=== PATIENT | male | born 1960 | race Caucasian/White ===

== ENCOUNTER 2016-06-16 12:15 | Inpatient (IN) | payer OTHER ==
[2016-06-16] VITALS (7 sets, daily range): BP systolic 154–178; BP diastolic 97–117; PULSE 95–104; RESP 12–18; O2SAT 95–97
[~2016-06-16] VITALS: Ht 172.7 cm; Wt 101.9 kg
[~2016-06-16 12:15] MED LIST: DIGO125T PO; FOLI-51 PO; FURO40TA PO; LISI10TA9 PO; TOPR25T PO; vitamin B 12 PO
--- NOTE | 2016-06-16 12:50 | ED.REPORT ---
HPI-General Illness Date of Service June 16, 2016 ED Provider: The patient is a 55 year old male with history of hypertension and congestive heart failure who presents to the emergency department complaining of left ear swelling and pain that began 6 days. The swelling has worsened since onset and is now involving the left side of his face. The area is painful to the touch. He has also noticed drainage from his left ear, pressure down his neck, left- sided facial pain, balance issues, and diaphoresis. He is still able to hear. He denies measured fever, chills or vomiting. He has not had similar symptoms in the past. Nursing Notes Stated Complaint: SWELLING OF LEFT EAR Chief Complaint: ENT & Mouth Nursing Notes Reviewed: Yes Allergies: Coded Allergies: levofloxacin (Verified Allergy, Intermediate, redness and swelling at IV infusion site. 06/16/16, 06/16/16) Scheduled ([vitamin B 12]) 1 PO DAILY Digoxin-Expunged Drug, Do Not Renew! (Digoxin-Expunged Drug, Do Not Renew!) 125 Mcg Tablet 125 MCG PO DAILY Folic Acid/Mv,Fe,Other Min (Centrum Complete Multivit Tab) 1 Each Tablet 1 EACH PO DAILY Furosemide-Expunged Drug, Do Not Renew! (Lasix-Expunged Drug, Do Not Renew!) 40 Mg Tablet 40 MG PO DAILY Lisinopril-Expunged Drug, Do Not Renew! (Lisinopril-Expunged Drug, Do Not Renew! ) 10 Mg Tablet 10 MG PO BID Metoprolol Suc-Expunged Drug, Do Not Renew! (Metoprolol Suc-Expunged Drug, Do Not Renew!) 25 Mg Tber 25 MG PO DAILY General Time Seen by MD: 12:49 Chief Complaint Other (left ear swelling) Hx Obtained From: Patient Arrived By: Walk-in Sudden in Onset?: Yes Onset Occurred: 6 days ago Symptom Duration: Since onset Location: : Ear left: Face Quality: Painful Severity: Current: Moderate Severity: Maximum: Moderate Recent Healthcare: No recent doctor visit, No recent hospitalization Similar Sx Previous: No Past Medical History Past Medical History Notes: Cardiology: Dr. Guy Past Medical History Hypertension Congestive heart failure Denies: Diabetes mellitus Past Surgical History Cervical fusion of C3 and C4 Family History Reports: Diabetes mellitus, Hypertension Smoking History Unknown if Ever Smoker Social History Alcohol Use: >5 per day Other Social History: Local resident Ambulatory Status Independent Review of Systems +left ear swelling, left-sided facial swelling Full Review of Systems Constitutional: Denies: Chills, Fever Ears / Nose / Throat: Reports: Ear drainage left, Earache left, Denies: Hearing loss bilateral GI: Denies: Vomiting Musculoskeletal: Reports: Neck pain Skin: Reports Diaphoresis Complete sys rev & neg: except as marked. Physical Exam Vital Signs Vital Signs Date Time Temp Pulse Resp B/P Pulse Ox O2 Delivery O2 Flow Rate FiO2 06/16/16 16:04 36.9 102 18 155/97 95 Room Air 06/16/16 12:34 37.0 110 12 177/108 97 Room Air Initial VS: Reviewed Head / Eyes: Atraumatic, Normocephalic, PERRL Respiratory: Breath sounds normal, Clear to auscultation, No respiratory distress Cardiovascular: Regular rate & rhythm, Heart sounds normal, Intact distal pulses Abdomen / GI: Soft, Non-tender, No guarding, No rebound, No distention Lymphatic: No lymphadenopathy Extremities: Vascular intact, Neuro intact, No swelling, No tenderness Skin: Warm, Dry, No cyanosis Neurologic: Alert, Oriented, Nonfocal Psychiatric: Mood/affect normal, Behavior normal, Normal thought content General/Constitutional: Awake, Alert, Cooperative ENT: Airway patent Left external ear erythema and edema with swelling extending to the jaw and cheek. The left ear canal is edematous and erythematous and is partially occluded with draining purulent fluids. There is moderate auricle and tragal tenderness to manipulation. Neck: No midline vertebral tend Left lower cervical adenopathy tenderness Interpretation & Diagnostics Interpretation & Diagnostics: CT SOFT TISSUE NECK IMPRESSION: 1. Inflammation involving the left external auditory canal and the left periauricular soft tissues compatible with clinical diagnosis of malignant otitis externa. 2. No abscess. Dictated by: Karlene Cisneros MD, PhD on 06/16/2016 at 16:31 Lab Results Interpretation Result Diagram: 06/16/16 1510 06/16/16 1510 Test 06/16/16 15:10 06/16/16 17:01 White Blood Count 6.2th/mm3 (3.8-10.1) Red Blood Count 5.27mil/mm3 (4.40-5.80) Hemoglobin 15.6g/dL (13.8-17.2) Hematocrit 45.0% (41.0-50.0) Mean Corpuscular Volume 85.4fL (81-100) Mean Corpuscular Hemoglobin 29.6pg (27.0-35.0) Mean Corpuscular Hemoglobin Concent 34.7% (32.0-37.0) Red Cell Distribution Width 13.1% (12.3-15.4) Platelet Count 174bil/L (150-400) Neutrophils (%) (Auto) 79.4% (40-74) Lymphocytes (%) (Auto) 11.4% (14-46) Monocytes (%) (Auto) 8.1% (4-12) Eosinophils (%) (Auto) 0.3% (0-5) Basophils (%) (Auto) 0.5% (0-3) Sodium Level 138mEq/L (134-144) Potassium Level 4.3mEq/L (3.5-5.2) Chloride Level 95mEq/L (97-108) Carbon Dioxide Level 25mmol/L (18-29) Blood Urea Nitrogen 13mg/dL (6-24) Creatinine 0.70mg/dL (0.76-1.27) Estimat Glomerular Filtration Rate 124mL/min (>59) Glucose Level 124mg/dL (60-99) Lactic Acid Level 1.6mmol/L (0.4-2.0) Calcium Level 9.6mg/dL (8.5-10.1) Total Bilirubin 0.5mg/dL (0.0-1.2) Aspartate Amino Transf (AST/SGOT) 48U/L (0-50) Alanine Aminotransferase (ALT/SGPT) 30U/L (0-44) Alkaline Phosphatase 77U/L (25-150) Total Protein 7.9g/dL (6.4-8.4) Albumin 4.3g/dL (3.4-5.0) Urine Color Yellow (YELLOW) Urine Appearance Clear (CLEAR,HAZY) Urine pH 5.5 (5.0-8.0) Urine Specific [place] <1.005 (1.003-1.035) Urine Protein Negativemg/dL (NEG,TRACE) Urine Glucose (UA) Negativemg/dL (NEGATIVE) Urine Ketones Tracemg/dL (NEGATIVE) Urine Occult Blood Moderate (NEGATIVE) Urine Nitrite Negative (NEGATIVE) Urine Bilirubin Negative (NEGATIVE) Urine Urobilinogen Normalmg/dL (NORMAL) Urine Leukocyte Esterase Negative (NEGATIVE) Urine RBC 3-10/hpf (0-2) Urine WBC 0-5/hpf (0-5) Urine Epithelial Cells Occasional/hpf (NONE-MOD) Urine Crystals None seen (NONE SEEN) Urine Bacteria None/hpf (NONE-FEW) Urine Hyaline Casts None/lpf (NONE) Urine Granular Casts None seen (NONE SEEN) Urine Waxy Casts None seen (NONE SEEN) Urine Red Blood Cell Casts None seen (NONE SEEN) Urine White Blood Cell Casts None seen (NONE SEEN) Urine Mucus None seen (None Seen) Urine Trichomonas None seen (NONE SEEN) Urine Yeast None (NONE SEEN) Urinalysis Comment None Urine Culture Reflexed Not indicated Re-Eval/Medical Decision Med Decision/Clinical Course Rapidly expanding otitis externa with ear canal almost completely occluded due to edema. Concern for malignant otitis externa. No abscess appreciated at this time. No evidence of sepsis. We will admit for IV antibiotics. We will anticipate infectious disease consult. Levaquin was started in the emergency department and he promptly had an acute reaction at the site of the IV infusion. Was stopped 25 mg of Benadryl through the IV site was given. His doing well otherwise. We will change to PIP taser. He was also given vancomycin and ceftriaxone until pathogen is actually identified. Time of Eval: 17:03 Re-Evaluation/Progress Note: Rechecked the patient. Discussed CT results, diagnosis, and plan for admission to the hospital. He understands and agrees. All questions were addressed. Time of Eval: 17:17 Re-Evaluation/Progress Note: He is having a reaction to the IV Levaquin as it is infusing. It is stopped and Benadryl is given and we will have to find a different antipseudomonal antibiotic. Consultation #1: Referral / Consult Name: Fide Carballo DO Consulted With: Hospitalist Requested Call at: 17:03 Call Returned at: 17:50 Online Merchandising Manager: Will see patient, Agrees with eval, Agrees with plan, Accepts admit Consultation #2: Referral / Consult Name: Domenic Jacob MD Consulted With: ENT Requested Call at: 17:08 Call Returned at: 17:53 Online Merchandising Manager: Will see patient, Agrees with eval, Agrees with plan Counseled Regarding: Diagnosis, Lab results, Need for admission Discharge & Departure Primary Impression: Malignant otitis externa of left ear Chronicity: acute Qualified Code: H60.22 - Malignant otitis externa, left ear Disposition: ADMITTED TO HOSPITAL Discharge Condition All VS Reviewed: Yes Condition: Stable Referrals: Vincent Valdes DO (PCP) Harpreet Attestation Portions of this note were transcribed by Lia Paredes. I, Dr. De La Fuente, personally performed the history, physical exam and medical decision-making; I reviewed and confirmed the accuracy of the information in the transcribed note. Signed by: Harpreet Zavaleta, 06/16/2016 and 1800. copies to: Vincent Valdes Shawna L MD June 16, 2016 12:50 Lia Paredes June 16, 2016 12:53
[2016-06-16] MEDS ORDERED: cefTRIAXone Inj 2,000 MG in Dextrose 5% Minibag Plus 50 ML IV ONE (13:20)
[2016-06-16] MEDS ORDERED: levoFLOXacin Inj 750 MG in IV Premix 1 EACH IV ONE (14:05)
[2016-06-16 15:25] LABS: BASOPHILS % (AUTO) 0.5 % (0-3); EOSINOPHILS % (AUTO) 0.3 % (0-5); MONOCYTES % (AUTO) 8.1 % (4-12); Mean Corpuscular Hemoglobin 29.6 pg (27.0-35.0); Mean Corpuscular Volume 85.4 fL (81-100); NEUTROPHILS % (AUTO) 79.4 % (40-74); Platelet Count 174 bil/L (150-400)
--- NOTE | 2016-06-16 16:45 | DRSVH ---
PROCEDURE: CT NECK SOFT TISSUES WITH CONTRAST ([id number]) INDICATIONS: malignant otitis externa TECHNIQUE: After the administration of intravenous contrast, 3.0 mm axial sections acquired from the sella to th e aortic arch. Additional oblique axial 3.0 mm sections acquired through the pharynx. 3 mm thick co martine reformats were generated. For radiation dose reduction, the following was used: automated exp osure control. COMPARISON: None. FINDINGS: Image quality: Excellent. Lymph nodes: No enlarged lymph nodes seen throughout the neck. Vessels: Visualized vasculature appears patent. Neck spaces: Skin thickening and subcutaneous inflammation involving the left external auditory chelo l and left nina-auricular soft tissues noted. Findings compatible with reported clinical diagnosis of malignant otitis externa. No abscess is identified. The oropharynx, nasopharynx, and pharynx demonst rate no mucosal lesions. The vocal cords, false vocal cords, pyriform sinuses, epiglottis, vallecula , and tongue base all appear normal. Extramucosal spaces appear unremarkable. Glands: The right parotid gland is normal in appearance. Mild inflammatory changes involving the sup erior margin of the left parotid gland related to left malignant otitis externa. The submandibular gl ands appear normal. Thyroid gland is within normal limits. Miscellaneous: Visualized brain and orbits appear normal. Lung apices appear clear. Superficial so ft tissues appear normal. Bones: No suspicious bony lesions. No osseous erosive changes are associated with the right malignan t otitis externa. Small mucous retention cyst versus polyp noted in the left maxillary sinus. The mas toids appear unremarkable. IMPRESSION: 1. Inflammation involving the left external auditory canal and the left periauricular soft tissues co mpatible with clinical diagnosis of malignant otitis externa. 2. No abscess. Dictated by: Karlene Cisneros MD, PhD on 06/16/2016 at 16:31 Approved by: Karlene Cisneros MD, PhD on 06/16/2016 at 16:43
[2016-06-16 17:14] LABS: APPEARANCE,URINE CLEAR (CLEAR,HAZY); COLOR,URINE YELLOW (YELLOW); OCCULT BLOOD,URINE MODERATE (NEGATIVE); PH,URINE 5.5 (5.0-8.0); UROBILINOGEN,URINE NORMAL (NORMAL)
[2016-06-16] MEDS ORDERED: Neomycin-Polymyxin-HC 10 mL Otic Solution LEFT_EAR ONE (17:50)
[2016-06-16] MEDS ORDERED: Polyethylene Glycol (PEG) 17 Gm Powder PO PRN (18:10)
[2016-06-16] MEDS ORDERED: Alum-Mag Hydrox-Simeth 30 mL Suspension PO PRN (18:10)
[2016-06-16] MEDS ORDERED: Ondansetron 2 mg/mL 2 mL Inj IVPUSH PRN (18:10)
[2016-06-16] MEDS ORDERED: Piperacillin-Tazo 3.375 Gm Inj 3.375 GM in Dextrose 5% Minibag Plus 50 ML IV ONE (18:15)
[2016-06-16] MEDS ORDERED: MULT-1104 PO (18:46)
[2016-06-16] MEDS ORDERED: OMEG-38 PO (18:46)
[2016-06-16] MEDS ORDERED: CYAN100T PO (18:46)
[2016-06-16] MEDS ORDERED: CHOL10008 PO (18:46)
--- NOTE | 2016-06-16 18:50 | PCM.HPMED ---
Subjective Date of Service June 16, 2016 Primary Provider: Admitting Physician: Fide Carballo DO Primary Care Physician: Dara Attending Physician: Fide Carballo DO Admit Status: From the Emergency Department Chief Complaint: Left ear pain History of Present Illness: 55-year-old male with past medical history of systolic heart failure, hypertension who was lost to medical follow for the last 2 years his presenting with left ear pain that is ongoing for 6 days . He states that he does not smoke and he has had no fevers or chills. No sore throat or sinus infections. He does feel occasional pressure sensation in his ears. He denies using too much Q-tips to cause trauma. He has had no strep throat infections. He is endorsing drainage from left ear, pressure on his neck left-sided facial pain but denies hearing loss and fevers and chills he was unable to go to work for the last 1 week because of this.. States that he gets his ears flushed due to due to wax sometimes but has not done this in the recent past In the ER he was given vancomycin and ceftriaxone. Levaquin was started but still held due to itching and reaction. His blood pressures were elevated at 177/108 and heart rate 110 and 102. ENT was contacted Dr. Baldev Jacob agreed to see the patient CT scan of soft tissue neck showed malignant otitis, inflamed periarticular soft tissue. Records indicate an echo that was done in 12/20/12 showed ejection fraction of 45 -50%, mild dilatation of left atrium, mild dilation of the ascending aorta, 31 mm of right ventricular pressures. Review of Systems: Positive for polyuria, slight numbness around the year, 8 out of 10 pain over his face and ear. Patient denies diarrhea, constipation, nausea, vomiting leg swelling, shortness of breath, chest pain dysuria. Patient endorses feeling dizzy, diaphoresis. Allergies Coded Allergies: levofloxacin (Verified Allergy, Intermediate, redness and swelling at IV infusion site. 06/16/16, 06/16/16) PMH Remarkable for hypertension and systolic heart failure Surgical History Remarkable for Cardiac catheterization due to shortness of breath and C3-C4 fusion Family History Mother had some kind of hepatitis and with some type of cancer Father had diabetes and of congestive heart failure Older brother has hypertension second brother has systolic heart failure Sister has. 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 Intramedullary changes over the auricle, negative for drainage, negative for hearing loss, positive for rhinophyma Neck: Palpable posterior cervical lymphadenopathy on the left side, palpable submental lymphadenopathy Heart: Regular rate and rhythm last S4 sounds Lungs: Clear to auscultation no crackles or wheezes Neuro: No focal deficits alert and oriented by 3 Psych: Negative for anxiety Lab and Diagnostics Result Diagram: 06/16/16 1510 06/16/16 1510 X-Rays, CTs and MRIs PROCEDURE: CT NECK SOFT TISSUES WITH CONTRAST ([id number]) IMPRESSION: 1. Inflammation involving the left external auditory canal and the left periauricular soft tissues compatible with clinical diagnosis of malignant otitis externa. 2. No abscess. Dictated by: Karlene Cisneros MD, PhD on 06/16/2016 at 16:31 Approved by: Karlene Cisneros MD, PhD on 06/16/2016 at 16:43 ADDENDUM This report includes an Addendum and supersedes previous reports for this exam. PROCEDURE: CT NECK SOFT TISSUES WITH CONTRAST ([id number]) INDICATIONS: malignant otitis externa ADDENDUM: Inadvertently the dictation did not mention at the site of the palpable abnormality in the posterior left upper neck approximately C3. At this site is a bilobed or 2 adjacent small lymph nodes that enhance and show a small amount of inflammation around them consistent with inflammatory response. Also, the parotid gland was reviewed per Dr. Carballo and no abnormality of it is seen. There is some stranding in the subcutaneous fat superficial to it. Dictated by: Philipp Carbajal M.D. on 06/16/2016 at 18:55 Approved by: Philipp Carbajal M.D. on 06/16/2016 at 18:56 Report status: Addendum REPORT#: [id number] Assessment & Plan This is a 55-year-old male with past medical history of hypertension and congestive heart failure that is systolic presenting today with a malignant otitis externa. Assessment #1 malignant otitis externa present on admission -- ENT is consulted Dr. Oliverio Jacob has seen the patient: We will await their recommendations -- Zosyn antibiotic 3.375 mg every 8 hours, avoid fluoroquinolones due to his reaction in the ER -- Morphine, ketorolac for pain control -- Tylenol, ibuprofen -- It appeared the radiology imaging with Dr. Carbajal, who stated that there is no concern for parotiditis based on the imaging no additional CT scanning is necessary. He also admitted the CT scan report to include lymphadenopathy findings. Assessment #2 congestive heart failure systolic, chronic: Patient has been noncompliant -- Restarted his lisinopril 10 mg, metoprolol 12.5 twice a day Assessment #3 hypertension, chronic: Patient has been Noncompliant -- Restarted his lisinopril 10 mg, metoprolol 12.5 twice a day Assessment #4 alcohol abuse: -- Patient is put on ciwa protocol -- After I have Seen the patient, ER staff called asking for the patient to be sent to the second floor as they are concerned about his alcoholism and risk of delirium tremens -- Patient will be seen by second-floor hospitalists 06/17 CODE STATUS: Full code Alternate decision-maker is older brother Diet heart healthy IV fluids hep-locked Pain Evaluation: Adequate Pain Control VTE Prophylaxis: Sub-Q Heparin (Unfractionated) Resuscitation Status: CPR: Attempt Resuscitation Time spent 40 minutes Fide Carballo DO June 16, 2016 18:50
[2016-06-16] MEDS ORDERED: OMEP20TA24 PO (18:52)
[2016-06-16] MEDS ORDERED: Piperacillin-Tazo 3.375 Gm Inj 3.375 GM in Dextrose 5% Minibag Plus 50 ML IV SCH (19:30)
[2016-06-16] MEDS: Multivit-Miner-Folic Acid-Iron Tablet PO SCH (22:11)
[2016-06-16] MEDS: Heparin 5,000 Unit/mL Inj SUBQ SCH (22:12)
[2016-06-16] MEDS: Sodium Chloride LOK Flush 10 mL Syringe IVFLUSH SCH (22:12)
[2016-06-17] VITALS (10 sets, daily range): BP systolic 109–147; BP diastolic 71–91; PULSE 69–90; RESP 18–20; O2SAT 94–98
--- NOTE | 2016-06-17 00:05 | ER ---
[address] [address] EMERGENCY DEPT ADMIT NOTE PATIENT: EMY PIERRE : 1960 MR#: [id number] ADMIT: 06/16/2016 JOB ID: [id number] DATE: ____/ at 7:30 in the evening. [facility] Emergency department. Room 15. HISTORY: This is a 55-year-old gentleman who said his ear on the left side has been increasingly sore for the last six days or so. He came to the emergency department. He is now being admitted for cellulitis of the auricle and ear canal. He uses Q-Tips to clean his ears and we talked about that is the usual cause of this infection. He is not diabetic and the CAT scan is reportedly okay without skull base involvement at this point. OBJECTIVE: Ear, nose and throat exam is normal except for wax pushed down his right ear canal by his Q-tip, filling about half of the ear canal and eardrum looks normal. The left auricle is markedly swollen and weeping. The left ear canal is swollen shut and with gentle persuasion. the ear canal could be instrumented with an otoscope and there does not seem to be any ear infection of the eardrum region. ASSESSMENT: Otitis externa, left, with cellulitis secondary to Q-tip use and abuse. Three Merocel sponges were positioned in the left ear canal. Cortisporin Otic suspension drops were utilized. The patient will be admitted, put on IV antibiotics and was cautioned not to try to clean his ears himself. Cortisporin otic suspension drops four drops four times a day in the left ear will be administered and ordered. When there is improvement in his condition and he is discharged, we should see him this next week in our office to monitor his ongoing recovery and remove the ear wax.
[2016-06-17] MEDS ORDERED: 0.9% Sodium Chloride 250 ML ONE (00:39)
[2016-06-17] MEDS: cloNIDine 0.1 mg Tablet PO SCH ×3 (00:54→12:08)
[2016-06-17] MEDS: Piperacillin-Tazo 3.375 Gm Inj 3.375 GM in Dextrose 5% Minibag Plus 50 ML IV SCH ×2 (00:54→08:37)
[2016-06-17] MEDS: Sodium Chloride LOK Flush 10 mL Syringe IVFLUSH SCH ×3 (00:54→16:53)
[2016-06-17] MEDS: Neomycin-Polymyxin-HC 10 mL Otic Solution LEFT_EAR SCH ×5 (00:54→21:58)
[2016-06-17] MEDS: Heparin 5,000 Unit/mL Inj SUBQ SCH ×3 (01:36→17:40)
[2016-06-17 05:17] LABS: BASOPHILS % (AUTO) 0.5 % (0-3); EOSINOPHILS % (AUTO) 1.5 % (0-5); MONOCYTES % (AUTO) 9.4 % (4-12); Mean Corpuscular Hemoglobin 30.1 pg (27.0-35.0); NEUTROPHILS % (AUTO) 73.4 % (40-74); Platelet Count 150 bil/L (150-400)
[2016-06-17] MEDS: Multivit-Miner-Folic Acid-Iron Tablet PO SCH (08:36)
[2016-06-17] MEDS ORDERED: Epinephrine Racemic 2.25% 0.5 mL Inhalation Solution NEB ONE (09:45)
[2016-06-17] MEDS ORDERED: Albuterol 1.25 mg/3 mL Inhalation Solution ONE (09:47)
[2016-06-17] MEDS ORDERED: Dexamethasone 4 mg/mL Inj IVPUSH ONE ×3 (09:55→17:10)
--- NOTE | 2016-06-17 12:51 | CONS ---
[address] [address] CONSULTATION REPORT PATIENT: EMY PIERRE : 1960 MR#: [id number] ADMIT: 06/16/2016 JOB ID: [id number] DATE OF SERVICE: 06/17/2016 REQUESTING PHYSICIAN: I thank Dr. Brown Menjivar for this timely consultation. REASON FOR CONSULTATION: Left malignant otitis externa in an apparently nondiabetic patient. HISTORY OF PRESENT ILLNESS: The patient is a 55-year-old gentleman with multiple underlying medical problems, including hypertension and cardiomyopathy which is felt to be due to alcohol but which of course could be due to hypertension as well. The patient reports he was in his usual state of functional health until about 10 days or so ago when he developed blistering tender lesions on the pinna of his left ear. This has progressed steadily over the past 7-10 days with increasing pain, drainage, swelling, and discomfort involving eventually the whole left side of his head, radiating up but to the area around the orbit as well as causing a significant headache and all the way down really to his upper left neck. The patient has had no fevers or chills. He has chronic night sweats of unknown etiology which have not changed as part of this illness. He reports no change in his vision and no difficulty moving his eyes. At no point has he had seizures, loss of consciousness, or apparent confusion. Earlier this morning while being examined, the patient reported tightness in his throat which was rapidly progressive which seems to have resolved with albuterol inhalation and cool mist. The patient has not had a significant cough as part of this illness, nor has he had chest pain, nausea, vomiting, or diarrhea. 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 The patient reports some degree of disequilibrium and dizziness in association with his left ear process. He does not describe true vertigo. He has not had any syncope. He is able to ambulate without undue difficulty. PAST MEDICAL HISTORY: 1. Hypertension. 2. Cardiomyopathy, potentially secondary to alcohol and/or hypertension. 3. Alcoholism. 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 He was born and raised in this area and has not traveled widely. He is a heavy consumer of alcohol with 12 shots or so of tequila on a nightly basis. He does not smoke cigarettes but occasionally smokes marijuana. Much earlier in his life, he experimented with cocaine and methamphetamine but no longer. He is and had one child who in infancy of group B strep bacteremia or meningitis. FAMILY HISTORY: Patient's mother had tuberculosis. To the best of his knowledge, he has not had tuberculosis, nor has he been tested, though it seems likely that he would have received at least a PPD from the health department. REVIEW OF SYSTEMS: The patient reports a significant headache, especially on the left side of his head. He has no visual problems either with movement of his eyes or vision, though he did report some transient blurry vision earlier which resolved. He has had sensation of disequilibrium and nonspecific lightheadedness, but he has been able to walk without difficulty and perform his ADLs. At no point has he had confusion or loss of consciousness. He has had no particular sore throat, though earlier today he reported throat tightening that resolved with nebulizers. No odynophagia. No dysphagia. No stiff neck. He has a chronic cough, but it has not changed. It is not productive of blood or significant sputum. No chest pain. No nausea, vomiting, diarrhea, dysuria, urgency, frequency, swollen joints. The patient has no focal neuro complaints. Remainder of his review of systems is negative. PHYSICAL EXAMINATION: Reveals a quite ill gentleman sitting up in his hospital bed. Temperature 36.7. He has been afebrile throughout his 24-hour stay here at [facility]. Pulse 77, respiratory rate 18, blood pressure 120/77, saturating 95% on room air. He is in some obvious distress due to the pain involving his left ear area. The patient's entire head, neck, and upper chest are very james in appearance. His abdomen is not, and I think this is a result primarily of sun exposure, as he works outside at least part of the time. The head is without evidence of trauma or temporal wasting. His eyes are without conjunctivitis or scleral icterus. Extraocular movements are intact. The nose appears normal. Oral cavity has a very deeply furrowed tongue but without clear-cut thrush, pharyngitis, or exudate. Neck is supple without significant adenopathy. The patient's left ear is dramatically abnormal. There is a purulent material with crusting filling the external auditory canal. The entire pinna and apparatus of the left ear is grossly inflamed, warm, and tender to palpation. This tenderness extends in a circumferential area around the entire left ear. The dougherty crusting material present in the ear would be consistent with a staphylococcal infection. The right ear is basically normal at this point. The patient's lungs are clear to auscultation. Cardiac exam: Regular rate and rhythm. No murmur. Abdomen is soft, nontender, somewhat obese, but no hepatosplenomegaly. No apparent ascites. It does not have a Ashford catheter. No suprapubic fullness. No inguinal adenopathy. No evidence of synovitis. No skin rash except that around his left ear. Neurologically, the patient is intact. LABORATORIES: Include white count 6000. Completely normal differential on the white count. Creatinine 0.87. LFTs are normal. Urinalysis without white cells. Note that his glucose is 121 fasting. HIV and hepatitis C we just ordered, and results are pending. Culture from the ear is growing group B strep, as well as Staph aureus with susceptibilities that are pending. Blood cultures are negative. IMAGING: Includes a CT scan of the neck which shows inflammation of the left external auditory canal and left periauricular tissues compatible with malignant otitis externa. No abscess is seen. There is no involvement importantly of the bones. No osseous erosive changes are associated with this left malignant otitis. Note that in the CT report, there is some confusion between left and right, but all his disease is actually on the left. IMPRESSION: This is a 55-year-old gentleman with an unusual presentation. Malignant otitis externa is almost exclusively a disease of older people with poorly controlled diabetes. It has also been reported occasionally in human immunodeficiency virus patients. The organism is typically Pseudomonas aeruginosa. Here we have a gentleman who appears not to have diabetes, and as far as we know does not have human immunodeficiency virus, who presents with a very severe left otitis externa which appears to be due to a synergistic combination of Staphylococcus aureus and group B streptococcus. I think part of the workup here will be to look for an underlying cause of immunosuppression. It may be that his ongoing alcohol abuse leaves him sufficiently immunosuppressed for this process, but we must explore other possibilities as well. In terms of treating this, we are going to need a potent therapy directed against both MRSA as well as MSSA and group B strep until we know whether or not this is a MRSA or MSSA isolette. RECOMMENDATIONS: 1. Additional diagnostics will be ordered, including human immunodeficiency virus, hep C, procalcitonin, QuantiFERON Gold, and cardiac echo. 2. Daptomycin at about 7 mg/kg will be added to the Zosyn which has already been started. 3. I would continue the Zosyn until we are sure there is no Pseudomonas here, and then that can be dropped and will continue with daptomycin as our sole antibiotic. 4. This case discussed in detail with Dr. Menjivar as well as with the patient. 5. This patient could probably benefit from alcohol rehabilitation once his emergent problem is over, as his 12 shots of tequila per night is not probably sustainable in view of his unexplained cardiomyopathy which is probably due to alcohol, as well as what appears to be a very severe and atypical infection which he was likely predisposed to by this alcohol abuse.
[2016-06-17] MEDS: DAPTOmycin Inj 750 MG in 0.9% Sodium Chloride 50 ML IV SCH (13:20)
--- NOTE | 2016-06-17 14:12 | PCM.PNMED ---
Subjective Date of Service June 17, 2016 Subjective Mr. Crow is a 55-year-old gentleman with a history of alcoholic cardiomyopathy , acute systolic heart failure, hypertension, and depression with a previous suicide attempt in 2009 who was lost to medical follow for the last 2 years . He presented to the Emergency Department with a 6 day history of left ear pain and subsequently admitted for further evaluation and management of malignant otitis externa. Hospital day #1 Overnight, patient was admitted to [facility] with telemetry and started on IV zosyn. Per nursing, patient hypertensive with BP of 178/117 with a pulse of 104 and started on clonidine per the night hospitalist. Patient stated that he was concerned that he might be having alcohol withdrawal symptoms. Today he states that he has had significant alcohol withdrawal in the past but denies a history of seizures. He reports restless and mild nausea but otherwise is without complaint. Pain is well controlled. Exam Vital Signs Vital Sign - Last Date Time Temp Pulse Resp B/P Pulse Ox O2 Delivery O2 Flow Rate FiO2 06/17/16 06:23 75 124/81 06/17/16 03:55 36.9 18 96 Room Air Intake and Output 06/16/16 06/16/16 06/17/16 Cumulative From/Thru 15:00 23:00 07:00 06/16/16 12:34 - 06/17/16 04:43 Intake Total 551 ml 551 ml Output Total 1000 ml 1000 ml Balance -449 ml -449 ml Intake Oral 500 ml 500 ml IV Total 51 ml 51 ml Output Urine Total 1000 ml 1000 ml # Bowel Movements 0 0 Exam General: Well-developed, obese male, appears somewhat anxious but in no acute distress HEENT: Normocephalic, atraumatic, oral mucosa moist, no scleral icterus, facial flushing with increased erythema and swelling of the face on the left, his left ear is tender to palpation with significant erythema and swelling and dried pus. Neck: Soft, tender to palpation laterally on the left at the level of L3 consistent with palpable posterior lymphadenopathy. Cardiovascular: Regular rate and rhythm, no murmurs, no rubs, or gallops appreciated Pulmonary: Clear to auscultation bilaterally with no crackles, wheezes, or rhonchi. Abdomen: Bowel tones present. Soft, nontender, nondistended. No hepatosplenomegaly or masses appreciated. Extremities: Trace edema ankles bilaterally with brawny discoloration consistent with venous staus changes. No clubbing or cyanosis Skin: Normal temperature, poor turgor in neck, and texture; no rash, ulcers, or subcutaneous nodules appreciated. Neurological: Cranial nerves grossly intact. Alert and oriented to person, place , and time. Psychiatric: Appropriately interactive, mildly anxious with normal affect IVs and Medications Medications Reviewed: Medications were reviewed in detail Lab and Diagnostics Laboratory Tests Test 06/16/16 15:10 06/16/16 17:01 06/17/16 05:05 White Blood Count 6.2th/mm3 (3.8-10.1) 6.1th/mm3 (3.8-10.1) Red Blood Count 5.27mil/mm3 (4.40-5.80) 4.85mil/mm3 (4.40-5.80) Hemoglobin 15.6g/dL (13.8-17.2) 14.6g/dL (13.8-17.2) Hematocrit 45.0% (41.0-50.0) 41.7% (41.0-50.0) Mean Corpuscular Volume 85.4fL (81-100) 86.0fL (81-100) Mean Corpuscular Hemoglobin 29.6pg (27.0-35.0) 30.1pg (27.0-35.0) Mean Corpuscular Hemoglobin Concent 34.7% (32.0-37.0) 35.0% (32.0-37.0) Red Cell Distribution Width 13.1% (12.3-15.4) 13.1% (12.3-15.4) Platelet Count 174bil/L (150-400) 150bil/L (150-400) Neutrophils (%) (Auto) 79.4% (40-74) 73.4% (40-74) Lymphocytes (%) (Auto) 11.4% (14-46) 14.9% (14-46) Monocytes (%) (Auto) 8.1% (4-12) 9.4% (4-12) Eosinophils (%) (Auto) 0.3% (0-5) 1.5% (0-5) Basophils (%) (Auto) 0.5% (0-3) 0.5% (0-3) Sodium Level 138mEq/L (134-144) 138mEq/L (134-144) Potassium Level 4.3mEq/L (3.5-5.2) 4.2mEq/L (3.5-5.2) Chloride Level 95mEq/L (97-108) 97mEq/L (97-108) Carbon Dioxide Level 25mmol/L (18-29) 25mmol/L (18-29) Blood Urea Nitrogen 13mg/dL (6-24) 15mg/dL (6-24) Creatinine 0.70mg/dL (0.76-1.27) 0.87mg/dL (0.76-1.27) Estimat Glomerular Filtration Rate 124mL/min (>59) 96mL/min (>59) Glucose Level 124mg/dL (60-99) 121mg/dL (60-99) Lactic Acid Level 1.6mmol/L (0.4-2.0) Calcium Level 9.6mg/dL (8.5-10.1) 9.1mg/dL (8.5-10.1) Total Bilirubin 0.5mg/dL (0.0-1.2) 0.7mg/dL (0.0-1.2) Aspartate Amino Transf (AST/SGOT) 48U/L (0-50) 37U/L (0-50) Alanine Aminotransferase (ALT/SGPT) 30U/L (0-44) 23U/L (0-44) Alkaline Phosphatase 77U/L (25-150) 66U/L (25-150) Total Protein 7.9g/dL (6.4-8.4) 6.5g/dL (6.4-8.4) Albumin 4.3g/dL (3.4-5.0) 4.0g/dL (3.4-5.0) Urine Color Yellow (YELLOW) Urine Appearance Clear (CLEAR,HAZY) Urine pH 5.5 (5.0-8.0) Urine Specific [place] <1.005 (1.003-1.035) Urine Protein Negativemg/dL (NEG,TRACE) Urine Glucose (UA) Negativemg/dL (NEGATIVE) Urine Ketones Tracemg/dL (NEGATIVE) Urine Occult Blood Moderate (NEGATIVE) Urine Nitrite Negative (NEGATIVE) Urine Bilirubin Negative (NEGATIVE) Urine Urobilinogen Normalmg/dL (NORMAL) Urine Leukocyte Esterase Negative (NEGATIVE) Urine RBC 3-10/hpf (0-2) Urine WBC 0-5/hpf (0-5) Urine Epithelial Cells Occasional/hpf (NONE-MOD) Urine Crystals None seen (NONE SEEN) Urine Bacteria None/hpf (NONE-FEW) Urine Hyaline Casts None/lpf (NONE) Urine Granular Casts None seen (NONE SEEN) Urine Waxy Casts None seen (NONE SEEN) Urine Red Blood Cell Casts None seen (NONE SEEN) Urine White Blood Cell Casts None seen (NONE SEEN) Urine Mucus None seen (None Seen) Urine Trichomonas None seen (NONE SEEN) Urine Yeast None (NONE SEEN) Urinalysis Comment None Urine Culture Reflexed Not indicated Microbiology 06/16/16 Blood Culture- pending 06/16/16 Upper Respiratory Culture (ear)- pending Result Diagram: 06/17/16 0505 06/17/16 0505 X-Rays, CTs and MRIs PROCEDURE: CT NECK SOFT TISSUES WITH CONTRAST IMPRESSION: 1. Inflammation involving the left external auditory canal and the left periauricular soft tissues compatible with clinical diagnosis of malignant otitis externa. 2. No abscess. Dictated and approved by: Karlene Cisneros MD, PhD on 06/16/2016 at 16:31 ADDENDUM: Inflammation involving the left external auditory canal and the left periauricular soft tissues compatible with clinical diagnosis of malignant otitis externa.Inadvertently the dictation did not mention at the site of the palpable abnormality in the posterior left upper neck approximately C3. At this site is a bilobed or 2 adjacent small lymph nodes that enhance and show a small amount of inflammation around them consistent with inflammatory response. Also, the parotid gland was reviewed per Dr. Carballo and no abnormality of it is seen. There is some stranding in the subcutaneous fat superficial to it. Dictated and approved by: Philipp Carbajal M.D. on 06/16/2016 at 18:55 Assessment & Plan 55-year-old gentleman with a history of alcohol dependence, alcoholic cardiomyopathy with acute systolic heart failure, hypertension, and depression with a previous suicide attempt in 2009 who was lost to medical follow for the last 2 years. He presented to the Emergency Department with a 6 day history of left ear pain and subsequently admitted for malignant otitis externa. Hospital day #1 1. Malignant otitis externa, acute. Present on admission. Active -Likely secondary to recent sore on patient's ear that he states he kept picking. -Received IV levoflaxacin in the ER which was stopped following acute reaction at site of IV infusion and patient given Benadryl. -He then received doses of vancomycin and ceftriaxone. Ultimately started on zosyn. -ENT is consulted Dr. Oliverio Jacob has seen the patient: We will await their recommendations -Continue piperacillin-tazobactam 3.375mg Q8hrs, avoid fluoroquinolones -ENT consulted from the ED, awaiting recommendations. -Consulted Infectious Disease. 2. Congestive heart failure, systolic, chronic. Present on admission. Active. -Patient has history of noncompliance with medications and follow up. -Per chart review, patient discharged on 11/15/2009 with diagnosis of: alcoholic cardiomyopathy, systolic heart failure, and atypical chest pain with normal cardiac catheterization. Echo at that time showed moderate-severely enlarged left ventricle with an ejection fraction of less than 15%. He was stabilized medically and discharged with: Furosemide 40mg daily, Lisinopril 10mg bid, metoprolol succinate 25mg daily. Digoxin 0.125 milligrams daily. -Last Echo via chart review was on 12/20/12 with EF 45-50%, mild dilatation of left atrium, mild dilation of the ascending aorta. -Continue Lisinopril 10mg, Metoprolol 12.5mg bid -Consider consult to Cardiology, due to history. Clinically does not appear in acute exacerbation. 3. Alcohol addiction, chronic. Present on admission. Active -Patient reports 10 shots of Tequila per day and prior symptoms of alcohol withdrawal but denies seizures. -Continue CIWA protocol 4. Chronic hypertension. Present on admission. Active. -Continue lisinopril 10mg daily, metoprolol 12.5 twice a day 5. Hyperlipidemia, chronic. Present on admission. Active. -Not currently on statin therapy. -Check lipid panel and likely start a statin 6. History of depression and anxiety, with prior suicide attempt. Present on admission. Active. -Not currently on anti-depressant. -Monitor clinically and continue CIWA protocol -Patient will need close outpatient follow up Acetaminophen-fever/headache/mild/moderate pain Antiemetics, as needed Bowel regimen, as needed. Disposition: Patient will likely need 2-3days of inpatient monitoring for IV antibiotics and optimization of medical management of multiple medical problems , which are chronic and patient has not been taking his medications. Pain Evaluation: Adequate Pain Control VTE Prophylaxis: Sub-Q Heparin (Unfractionated) Resuscitation Status: CPR: Attempt Resuscitation Attending Statement The patient was seen and examined together with Resident/House-Staff on 06/17/16 and I agree with the history, exam and plan as outlined in the note above. Kristine Santamaria DO June 17, 2016 08:16 Chivo Alvarez June 20, 2016 14:34
--- NOTE | 2016-06-17 15:45 | DRSVH ---
[facility] [address] [place] [address] Echocardiogram Report Name: EMY PIERRE DStudy Date : 06/17/2016 Height: 68 in Hospital Exam Location: [facility] Weight: 226 lb Gender: Male BSA: 2.2 m2 : 1960 Age: 55 yrs BP: 120/77 mmHg Reason For Study: ETOH CARDIOMYOPATHY, SOB Ordering Physician: HOSPITALIST SVHPerformed By: Perry Ramirez Referring Physician: FAUSTO ESTRADA Interpretation Summary The left ventricle is moderate-severely dilated. There is mild concentric left ventricular hypertrophy. Left ventricular systolic function is mild to moderately reduced. The ejection fraction is estimated to be 40-45%. Compared to the prior exam, left ventricular function is slightly decreased. But, there is evidence for more severe hypokinesis along the lateral wall. Assessment of diastolic parameters suggests a pseudonormalization pattern, consistent with elevated filling pressures. The right ventricle is moderately dilated. The right ventricular systolic function is normal. Pulmonary artery pressures cannot be estimated because of the lack of a measurable TR jet velocity. The left atrium is moderately dilated. The right atrium is mildly dilated. There is no significant valvular heart disease. The ascending aorta is mild-moderately enlarged which has mildly increased. Procedure: A two-dimensional transthoracic echocardiogram with color flow and Doppler was performed. The study quality was technically adequate. A contrast injection of Definity was performed to improve assessment of LV function. Comparison is made with the echocardiogram of 12/20/12. Left Ventricle: The left ventricle is moderate-severely dilated. There is mild concentric left ventricular hypertrophy. Left ventricular systolic function is mild to moderately reduced. The ejection fraction is estimated to be 40-45%. Compared to the prior exam, left ventricular function is slightly decreased. There is mild to moderate global hypokinesis of the left ventricle. But, there is evidence for more severe hypokinesis along the lateral wall. Assessment of diastolic parameters suggests a pseudonormalization pattern, consistent with elevated filling pressures. Right Ventricle: The right ventricle is moderately dilated. The right ventricular systolic function is normal. Atria: The left atrium is moderately dilated. The right atrium is mildly dilated. The interatrial septum is intact with no evidence for an atrial septal defect. Mitral Valve: The mitral valve leaflets appear borderline thickened, but open well. There is trace mitral regurgitation. Aortic Valve: The aortic valve is normal in structure and function. No aortic regurgitation is present. Tricuspid Valve: The tricuspid valve is not well visualized, but is grossly normal. Pulmonary artery pressures cannot be estimated because of the lack of a measurable TR jet velocity. Pulmonic Valve: The pulmonic valve leaflets are thin and pliable; valve motion is normal. There is trace pulmonic regurgitation. There is no significant valvular heart disease. Great Vessels: The aortic root is normal size. The ascending aorta is mild- moderately enlarged. The pulmonary artery is normal size. The IVC is of normal diameter and collapses greater than 50% with a sniff. This suggests a low right atrial pressure of 3 mm Hg. Pericardium/ Pleura There is no pericardial effusion. There is no pleural effusion. MMode/2D Measurements & Calculations LVIDd: 6.7 cm RA long axis: 5.0 cm LVOT diam LVIDs: 6.0 cm LA A2 area: 26.6 cm FS: 11.0 % LA A4 area: 25.8 cm RA area: 19.8 cm AoV Opening EPSS: 1.5 cm LA length (vol): 6.1 cm RA vol: 67.5 ml IVSd: 1.2 cm LA vol: 95.0 ml RA : 31.4 ml/m2 Ao root diam LVPWd: 1.1 cm LA vol index asc Aorta : 44.1 ml/m2 Diam: 4.1 cm EDV(MOD-sp2) LV elaine. diameter/BSA LV sys. diameter/BSA TAPSE: 2.3 cm (cm/m^2): 3.1 (cm/m^2): 2.8 ESV(MOD-sp2) EF(MOD-sp2) Doppler Measurements & Calculations Ao V2 max: 89.1 cm/sec MV E max noe MV E/A: 1.7 PA V2 max Ao max P.2 mmHg : 76.9 cm/sec Med Peak E' Noe : 60.8 cm/sec Ao mean P.0 mmHg MV A max noe PA mean PG LVOT Max Noe : 45.5 cm/sec E/E' med: 19.1 : 0.97 mmHg : 67.7 cm/sec Lat Peak E' Noe MISSAEL(I,D): 4.1 cm E/E' lat: 13.6 sev ratio: 0.83 E/e' average MV dec time: 0.15 sec Ao V2 mean LV V1 max PG PA V2 mean : 69.4 cm/sec : 47.4 cm/sec Ao V2 VTI: 14.1 cmLV V1 VTI: 11.8 cm PA pr(Accel) : 34.0 mmHg MISSAEL(V,D): 3.7 cm2 MISSAEL indexed to BSA (cm^2/m^2): 1.9 Reading Physician:PM
[2016-06-17] MEDS ORDERED: Famotidine 10 mg/mL 2 mL Inj IVPUSH ONE (17:05)
[2016-06-17] MEDS: Famotidine Inj 20 MG in IV Premix 1 EACH IV SCH (21:57)
[2016-06-17] MEDS: Dexamethasone 4 mg/mL Inj IVPUSH SCH (21:57)
[2016-06-17] MEDS: Mupirocin 2% 22 Gm Ointment NASAL SCH (21:57)
[2016-06-18] VITALS (8 sets, daily range): BP systolic 115–143; BP diastolic 79–90; PULSE 72–104; RESP 16–20; O2SAT 93–98
[2016-06-18] MEDS: Sodium Chloride LOK Flush 10 mL Syringe IVFLUSH SCH ×3 (02:04→16:14)
[2016-06-18] MEDS: Heparin 5,000 Unit/mL Inj SUBQ SCH ×3 (02:05→17:17)
[2016-06-18] MEDS: Dexamethasone 4 mg/mL Inj IVPUSH SCH ×6 (02:06→20:46)
[2016-06-18 02:09] LABS: Hemoglobin A1C 5.8 % (4.8-5.6)
[2016-06-18 04:24] LABS: BASOPHILS % (AUTO) 0.1 % (0-3); EOSINOPHILS % (AUTO) 0 % (0-5); MONOCYTES % (AUTO) 1.4 % (4-12); Mean Corpuscular Hemoglobin 29.4 pg (27.0-35.0); Mean Corpuscular Volume 84.6 fL (81-100); NEUTROPHILS % (AUTO) 89.4 % (40-74); Platelet Count 208 bil/L (150-400)
[2016-06-18] MEDS: Neomycin-Polymyxin-HC 10 mL Otic Solution LEFT_EAR SCH ×4 (06:00→23:56)
[2016-06-18] MEDS: Multivit-Miner-Folic Acid-Iron Tablet PO SCH (09:37)
[2016-06-18] MEDS: Mupirocin 2% 22 Gm Ointment NASAL SCH ×2 (09:46→20:47)
[2016-06-18] MEDS: Famotidine Inj 20 MG in IV Premix 1 EACH IV SCH ×2 (10:04→20:46)
[2016-06-18] MEDS: DAPTOmycin Inj 750 MG in 0.9% Sodium Chloride 50 ML IV SCH (10:50)
--- NOTE | 2016-06-18 13:45 | PCM.PNMED ---
Subjective Date of Service June 18, 2016 Subjective Mr. Crow is a 55-year-old gentleman with a history of alcoholic cardiomyopathy , acute systolic heart failure, hypertension, and depression with a previous suicide attempt in 2009 who was lost to medical follow for the last 2 years . He presented to the Emergency Department with a 6 day history of left ear pain and subsequently admitted for further evaluation and management of malignant otitis externa. Hospital day #2 Yesterday morning (06/17) patient reported shortness of breath, difficulty swallowing, and was noted to be quite anxious. At that time his symptoms were mild and attributed to anxiety secondary to alcohol withdrawal. He received dexamethasone 2mg IV and 5mg of IV diazepam which relieved his symptoms. Approximately 8 hours later his lip became very swollen and was noted by nursing to occur shortly after the patient had received zosyn and daptomycin. No signs of airway comprise and he was evaluated and discussed with Infectious Disease and the decision made to stop his lisinopril and zosyn. He was started on dexamethasone 6mg IV q4h, diphenhydramine 25mg IV q4h and famotidine 20mg IV q4h. Exam Vital Signs Vital Sign - Last Date Time Temp Pulse Resp B/P Pulse Ox O2 Delivery O2 Flow Rate FiO2 06/18/16 05:31 80 06/18/16 03:50 36.5 18 115/79 93 Room Air 06/17/16 21:46 2.00 Intake and Output 06/17/16 06/17/16 06/18/16 Cumulative From/Thru 15:00 23:00 07:00 06/16/16 12:34 - 06/18/16 06:17 Intake Total 1249 ml 200 ml 2000 ml Output Total 650 ml 350 ml 2000 ml Balance 599 ml -150 ml 0 ml Intake Oral 1040 ml 200 ml 1740 ml IV Total 209 ml 260 ml Output Urine Total 650 ml 350 ml 2000 ml # Voids 2 2 4 # Bowel Movements 0 0 Exam General: Well-developed, obese male, in no acute distress. Alert and oriented x3. HEENT: Normocephalic, atraumatic, facial flushing, lips swollen, left ear tender to palpation with erythema/swelling and dried pus. Neck: Soft, tender to palpation laterally on the left at the level of L3 consistent with palpable posterior lymphadenopathy. Cardiovascular: Regular rate and rhythm, no murmurs, no rubs, or gallops appreciated Pulmonary: Clear to auscultation bilaterally with no crackles, wheezes, or rhonchi. Abdomen: Bowel tones present. Soft, nontender, nondistended. No hepatosplenomegaly or masses appreciated. Extremities: Trace edema ankles bilaterally with brawny discoloration consistent with venous staus changes. No clubbing or cyanosis Skin: Normal temperature, normal turgor, and texture; facial flushing that extends to upper chest and back, no urticaria, obvious rash or ulcers Psychiatric: Appropriately interactive, mildly anxious with normal affect Lab and Diagnostics Laboratory Tests Test 06/18/16 04:10 White Blood Count 8.6th/mm3 (3.8-10.1) Red Blood Count 5.45mil/mm3 (4.40-5.80) Hemoglobin 16.0g/dL (13.8-17.2) Hematocrit 46.1% (41.0-50.0) Mean Corpuscular Volume 84.6fL (81-100) Mean Corpuscular Hemoglobin 29.4pg (27.0-35.0) Mean Corpuscular Hemoglobin Concent 34.7% (32.0-37.0) Red Cell Distribution Width 13.0% (12.3-15.4) Platelet Count 208bil/L (150-400) Neutrophils (%) (Auto) 89.4% (40-74) Lymphocytes (%) (Auto) 8.9% (14-46) Monocytes (%) (Auto) 1.4% (4-12) Eosinophils (%) (Auto) 0% (0-5) Basophils (%) (Auto) 0.1% (0-3) Sodium Level 135mEq/L (134-144) Potassium Level 4.8mEq/L (3.5-5.2) Chloride Level 95mEq/L (97-108) Carbon Dioxide Level 24mmol/L (18-29) Blood Urea Nitrogen 18mg/dL (6-24) Creatinine 0.70mg/dL (0.76-1.27) Estimat Glomerular Filtration Rate 124mL/min (>59) Glucose Level 159mg/dL (60-99) Calcium Level 9.8mg/dL (8.5-10.1) Total Bilirubin 0.6mg/dL (0.0-1.2) Aspartate Amino Transf (AST/SGOT) 28U/L (0-50) Alanine Aminotransferase (ALT/SGPT) 22U/L (0-44) Alkaline Phosphatase 67U/L (25-150) Total Protein 6.9g/dL (6.4-8.4) Albumin 4.2g/dL (3.4-5.0) Triglycerides Level 151mg/dL (0-149) Cholesterol Level 249mg/dL (100-199) LDL Cholesterol, Calculated 159.800mg/dL (0-99) VLDL Cholesterol 30.200mg/dL HDL Cholesterol 59mg/dL (>39) Cholesterol/HDL Ratio 4.22 (0.0-4.4) Result Diagram: 06/18/1640906/18/16409 Microbiology MRSA screen- positive Culture-left ear: positive for Group B streptococcus and Staph (probable S. aureus) Blood cultures- no growth to date. X-Rays, CTs and MRIs PROCEDURE: CT NECK SOFT TISSUES WITH CONTRAST IMPRESSION: 1. Inflammation involving the left external auditory canal and the left periauricular soft tissues compatible with clinical diagnosis of malignant otitis externa. 2. No abscess. Dictated and approved by: Karlene Cisneros MD, PhD on 06/16/2016 at 16:31 ADDENDUM: Inflammation involving the left external auditory canal and the left periauricular soft tissues compatible with clinical diagnosis of malignant otitis externa.Inadvertently the dictation did not mention at the site of the palpable abnormality in the posterior left upper neck approximately C3. At this site is a bilobed or 2 adjacent small lymph nodes that enhance and show a small amount of inflammation around them consistent with inflammatory response. Also, the parotid gland was reviewed per Dr. Carballo and no abnormality of it is seen. There is some stranding in the subcutaneous fat superficial to it. Dictated and approved by: Philipp Carbajal M.D. on 06/16/2016 at 18:55 Assessment & Plan 55-year-old gentleman with a history of alcohol dependence, alcoholic cardiomyopathy with acute systolic heart failure, hypertension, and depression with a previous suicide attempt in 2009 who was lost to medical follow for the last 2 years. He presented to the Emergency Department with a 6 day history of left ear pain and subsequently admitted for malignant otitis externa. Hospital day #2 1. Angioedema, acute. not present on admission. Improved. -Uncertain etiology, possibly allergic reaction to medication. -Patient reported difficulty swallowing and voice changes which progressed throughout the afternoon to include facial/lip swelling. Airway patent. -Lisinopril and piperacillin-tazobactam stopped. -Continue dexamethasone 6mg IV q4h, famotidine 20mg IV q4h and diphenhydramine 25mg IV q4h. 2. Malignant otitis externa, acute. Present on admission. Active -Likely secondary to recent sore on patient's ear that he states he kept picking. -Levofloxacin stopped in the ER following acute rxn at site of IV infusion. Received doses of vancomycin, ceftriaxone in the ER. -Continue daptomycin, per Infectious Disease. -Zosyn stopped 06/17 for angioedema. 3. Congestive heart failure, systolic, chronic. Present on admission. Active. -Patient has history of noncompliance with medications and follow up. -Per chart review, patient discharged on 11/15/2009 with diagnosis of: -alcoholic cardiomyopathy, systolic heart failure, and atypical chest pain with normal cardiac catheterization. -Echo at that time showed moderate-severely enlarged left ventricle with an EF<15%. -He was stabilized medically and discharged with: Furosemide 40mg daily, Lisinopril 10mg bid, metoprolol succinate 25mg daily. Digoxin 0.125 milligrams daily. -Last Echo via chart review was on 12/20/12 with EF 45-50%, mild dilatation of left atrium, mild dilation of the ascending aorta. -Continue Metoprolol 12.5mg bid, Lisinopril stopped due to angioedema. -Consider consult to Cardiology, due to history. Clinically does not appear in acute exacerbation. 4. Alcohol addiction, chronic. Present on admission. Active -Patient reports 10 shots of Tequila per day and prior symptoms of alcohol withdrawal but denies seizures. -Continue CIWA protocol 5. Chronic hypertension. Present on admission. Active. -Continue metoprolol 12.5 twice a day 6. Hyperlipidemia, chronic. Present on admission. Active. -Not currently on statin therapy. -Check lipid panel and likely start a statin 7. History of depression and anxiety, with prior suicide attempt. Present on admission. Active. -Not currently on anti-depressant. -Monitor clinically and continue CIWA protocol -Patient will need close outpatient follow up Acetaminophen-fever/headache/mild/moderate pain Antiemetics, as needed Bowel regimen, as needed. Disposition: Patient will likely need 2-3days of inpatient monitoring for IV antibiotics and optimization of medical management of multiple medical problems , which are chronic and patient has not been taking his medications. Pain Evaluation: Adequate Pain Control VTE Prophylaxis: Sub-Q Heparin (Unfractionated) Resuscitation Status: CPR: Attempt Resuscitation Attending Statement The patient was seen and examined together with Resident/House-Staff on 06/18/16 and I agree with the history, exam and plan as outlined in the note above. Kristine Santamaria DO June 18, 2016 08:33 Chivo Alvarez June 20, 2016 16:49
[2016-06-19] VITALS (8 sets, daily range): BP systolic 116–133; BP diastolic 78–93; PULSE 82–96; RESP 16–20; O2SAT 95–98
[2016-06-19] MEDS: Dexamethasone 4 mg/mL Inj IVPUSH SCH ×4 (00:39→12:47)
[2016-06-19] MEDS: Sodium Chloride LOK Flush 10 mL Syringe IVFLUSH SCH ×3 (00:39→16:39)
[2016-06-19] MEDS: Heparin 5,000 Unit/mL Inj SUBQ SCH ×3 (04:08→17:33)
[2016-06-19 05:05] LABS: BASOPHILS % (AUTO) 0 % (0-3); EOSINOPHILS % (AUTO) 0 % (0-5); MONOCYTES % (AUTO) 2.8 % (4-12); Mean Corpuscular Hemoglobin 29.1 pg (27.0-35.0); NEUTROPHILS % (AUTO) 90.5 % (40-74); Platelet Count 215 bil/L (150-400)
[2016-06-19] MEDS: Neomycin-Polymyxin-HC 10 mL Otic Solution LEFT_EAR SCH ×3 (05:07→17:33)
[2016-06-19] MEDS: Multivit-Miner-Folic Acid-Iron Tablet PO SCH (07:38)
[2016-06-19] MEDS: Mupirocin 2% 22 Gm Ointment NASAL SCH ×2 (07:39→20:10)
[2016-06-19] MEDS ORDERED: 0.9% Sodium Chloride 250 ML ONE (07:45)
[2016-06-19] MEDS: Famotidine Inj 20 MG in IV Premix 1 EACH IV SCH ×2 (07:53→20:07)
[2016-06-19] MEDS: DAPTOmycin Inj 750 MG in 0.9% Sodium Chloride 50 ML IV SCH (09:40)
--- NOTE | 2016-06-19 15:10 | PCM.PNMED ---
Subjective Date of Service June 19, 2016 Subjective Says overall feeling much better today. Denies any SOB, nausea, vomiting, difficulty swallowing. Exam Vital Signs Vital Sign - Last Date Time Temp Pulse Resp B/P Pulse Ox O2 Delivery O2 Flow Rate FiO2 06/19/16 12:15 36.6 89 20 116/81 96 Room Air 06/17/16 21:46 2.00 Intake and Output 06/18/16 06/18/16 06/19/16 Cumulative From/Thru 15:00 23:00 07:00 06/16/16 12:34 - 06/19/16 05:11 Intake Total 1290 ml 110 ml 3400 ml Output Total 2000 ml Balance 1290 ml 110 ml 1400 ml Intake Oral 1120 ml 2860 ml IV Total 170 ml 110 ml 540 ml Output Urine Total 2000 ml # Voids 4 8 # Bowel Movements 2 2 General: Alert, Oriented X3, Cooperative, No Acute Distress Head: Normal, Other (face flushed with diffuse erythema) Eyes: Scleral Anicteric Ears: Other (left ear with continued erythema and crusting.) Nose: Mucous Membr Moist/[place] Mouth: Lips (no longer swollen), Mucous Membr Moist/[place] Neck: Supple Chest & Lungs: Chest Wall Normal, Clear to auscultation & percussion Cardiovascular: Regular Rate/Rhythm Pulses: NL carotid, radial, femoral, DP, PT Abdomen: Non-tender, Non-distended, Normoactive bowel tones, Soft Extremities: No cyanosis/clubbing/edma bilat Neurological: Grossly Neurologically Intact, Normal Speech IVs and Medications Medications Reviewed: Medications were reviewed in detail Lab and Diagnostics Result Diagram: 06/19/16 0454 06/19/16 0454 Microbiology MRSA screen- positive Culture-left ear: positive for Group B streptococcus and Staph (probable S. aureus) Blood cultures- no growth to date. X-Rays, CTs and MRIs PROCEDURE: CT NECK SOFT TISSUES WITH CONTRAST IMPRESSION: 1. Inflammation involving the left external auditory canal and the left periauricular soft tissues compatible with clinical diagnosis of malignant otitis externa. 2. No abscess. Dictated and approved by: Karlene Cisneros MD, PhD on 06/16/2016 at 16:31 ADDENDUM: Inflammation involving the left external auditory canal and the left periauricular soft tissues compatible with clinical diagnosis of malignant otitis externa.Inadvertently the dictation did not mention at the site of the palpable abnormality in the posterior left upper neck approximately C3. At this site is a bilobed or 2 adjacent small lymph nodes that enhance and show a small amount of inflammation around them consistent with inflammatory response. Also, the parotid gland was reviewed per Dr. Carballo and no abnormality of it is seen. There is some stranding in the subcutaneous fat superficial to it. Dictated and approved by: Philipp Carbajal M.D. on 06/16/2016 at 18:55 Assessment & Plan 55-year-old gentleman with a history of alcohol dependence, alcoholic cardiomyopathy with acute systolic heart failure, hypertension, and depression with a previous suicide attempt in 2008 who was lost to medical follow for the last 2 years. He presented to the Emergency Department with a 6 day history of left ear pain and subsequently admitted for malignant otitis externa. 1. Acute angioedema. not present on admission. Improved. -Uncertain etiology, possibly allergic reaction to medication. -Lisinopril and piperacillin-tazobactam stopped. -Dexamethasone 6mg IV q4h, famotidine 20mg IV q4h and diphenhydramine 25mg IV q4h x 2 days. Will start titrating off 2. Malignant otitis externa, acute. Present on admission. Active -Likely secondary to recent sore on patient's ear that he states he kept picking. -Levofloxacin stopped in the ER following acute rxn at site of IV infusion. Received doses of vancomycin, ceftriaxone in the ER. -Cultures growing both Beta Strep Group G and MRSA -Appreciate ID consult. Will followup with recommendations -Continue daptomycin, per Infectious Disease (Zosyn stopped 06/17 due to angioedema) 3. Congestive heart failure, systolic, chronic. Present on admission. Stable -Patient has history of noncompliance with medications and follow up. -Per chart review, patient discharged on 11/15/2009 with diagnosis of: -alcoholic cardiomyopathy, systolic heart failure, and atypical chest pain with normal cardiac catheterization. -Echo at that time showed moderate-severely enlarged left ventricle with an EF<15%. -He was stabilized medically and discharged with: Furosemide 40mg daily, Lisinopril 10mg bid, metoprolol succinate 25mg daily. Digoxin 0.125 milligrams daily. -Last Echo via chart review was on 12/20/12 with EF 45-50%, mild dilatation of left atrium, mild dilation of the ascending aorta. -Continue Metoprolol 12.5mg bid, Lisinopril stopped due to angioedema. -Consider further followup by Cardiology as outpatient 4. Alcohol addiction, chronic. Present on admission. Active -Patient reports 10 shots of Tequila per day and prior symptoms of alcohol withdrawal but denies seizures. -Continue CIWA protocol 5. Chronic hypertension. Present on admission. Active. -Continue metoprolol 12.5 twice a day 6. Hyperlipidemia, chronic. Present on admission. Active. -Not currently on statin therapy. -Will defer to outpatient PCP for consideration of initiating medication treatment 7. History of depression and anxiety, with prior suicide attempt. Present on admission. Active. -Not currently on anti-depressant. -Monitor clinically and continue CIWA protocol -Patient will need close outpatient follow up Disposition: Likely 2-3 days. Will need to be setup with PCP prior to discharge (patient requests female PCP if possible) VTE Prophylaxis: Sub-Q Heparin (Unfractionated) Resuscitation Status: CPR: Attempt Resuscitation Chivo Alvarez June 19, 2016 15:10 Chivo Alvarez June 19, 2016 15:10
[2016-06-20] VITALS (9 sets, daily range): BP systolic 112–158; BP diastolic 75–105; PULSE 71–104; RESP 14–20; O2SAT 95–98
[2016-06-20] MEDS: Sodium Chloride LOK Flush 10 mL Syringe IVFLUSH SCH ×4 (00:37→23:59)
[2016-06-20] MEDS: Neomycin-Polymyxin-HC 10 mL Otic Solution LEFT_EAR SCH ×5 (00:37→23:58)
[2016-06-20] MEDS: Heparin 5,000 Unit/mL Inj SUBQ SCH ×3 (03:53→17:31)
[2016-06-20] MEDS ORDERED: Dexamethasone 4 mg/mL Inj IVPUSH SCH (08:30)
[2016-06-20] MEDS: Mupirocin 2% 22 Gm Ointment NASAL SCH ×2 (08:50→20:01)
[2016-06-20] MEDS: Multivit-Miner-Folic Acid-Iron Tablet PO SCH (08:50)
[2016-06-20] MEDS: Famotidine Inj 20 MG in IV Premix 1 EACH IV SCH ×2 (08:51→19:54)
[2016-06-20] MEDS: DAPTOmycin Inj 750 MG in 0.9% Sodium Chloride 50 ML IV SCH (08:54)
--- NOTE | 2016-06-20 11:29 | PCM.PNMED ---
Subjective Date of Service June 20, 2016 Subjective Mr. Crow is a 55-year-old gentleman with a history of alcoholic cardiomyopathy , acute systolic heart failure, hypertension, and depression with a previous suicide attempt in 2009 who was lost to medical follow for the last 2 years. He presented to the Emergency Department with a 6 day history of left ear pain and subsequently admitted for further evaluation and management of malignant otitis externa. Hospital day #5 Overnight, no acute events. Per nursing, CIWA scores 0 all shift and patient reported a restful night. He reports mild dizziness, point tenderness in his ribs/chest on the left and a cough associated with ear flushes but otherwise is without complaint and states that he is feeling much better. He denies fever, chills, chest pressure or palpitations, or GI symptoms. Exam Vital Signs Vital Sign - Last Date Time Temp Pulse Resp B/P Pulse Ox O2 Delivery O2 Flow Rate FiO2 06/20/16 09:25 104 06/20/16 08:38 36.5 20 158/105 96 Room Air 06/17/16 21:46 2.00 Intake and Output 06/19/16 06/19/16 06/20/16 Cumulative From/Thru 14:59 22:59 06:59 06/16/16 12:34 - 06/20/16 06:56 Intake Total 350 ml 1321 ml 490 ml 5561 ml Output Total 2000 ml Balance 350 ml 1321 ml 490 ml 3561 ml Intake Oral 350 ml 1200 ml 400 ml 4810 ml IV Total 121 ml 90 ml 751 ml Output Urine Total 2000 ml # Voids 3 4 7 22 # Bowel Movements 2 Exam General: Well-developed, obese male, in no acute distress. Alert and oriented x3. HEENT: Normocephalic, atraumatic, facial flushing, left ear tender to palpation with erythema/swelling. Neck: Soft, tender to palpation laterally on the left at the level of L3 consistent with palpable posterior lymphadenopathy. Cardiovascular: Regular rate and rhythm, no murmurs, no rubs, or gallops appreciated Pulmonary: Clear to auscultation bilaterally with no crackles, wheezes, or rhonchi. Abdomen: Bowel tones present. Soft, nontender, nondistended. No hepatosplenomegaly or masses appreciated. Extremities: Bilateral brawny discoloration of ankles bilaterally consistent with venous stasis changes. No edema, cyanosis or clubbing Skin: Normal temperature, normal turgor, and texture; facial flushing, no urticaria, obvious rash or ulcers Psychiatric: Appropriately interactive, normal mood and affect. IVs and Medications Medications Reviewed: Medications were reviewed in detail Lab and Diagnostics Microbiology 06/16/16 Blood Culture - no growth at 2 days 06/17/16 MRSA (PCR) - positive Result Diagram: 06/19/16 0454 06/19/16 0454 Microbiology MRSA screen- positive Culture-left ear: positive for Group B streptococcus and Staph (probable S. aureus) Blood cultures- no growth to date. X-Rays, CTs and MRIs PROCEDURE: CT NECK SOFT TISSUES WITH CONTRAST IMPRESSION: 1. Inflammation involving the left external auditory canal and the left periauricular soft tissues compatible with clinical diagnosis of malignant otitis externa. 2. No abscess. Dictated and approved by: Karlene Cisneros MD, PhD on 06/16/2016 at 16:31 ADDENDUM: Inflammation involving the left external auditory canal and the left periauricular soft tissues compatible with clinical diagnosis of malignant otitis externa.Inadvertently the dictation did not mention at the site of the palpable abnormality in the posterior left upper neck approximately C3. At this site is a bilobed or 2 adjacent small lymph nodes that enhance and show a small amount of inflammation around them consistent with inflammatory response. Also, the parotid gland was reviewed per Dr. Carballo and no abnormality of it is seen. There is some stranding in the subcutaneous fat superficial to it. Dictated and approved by: Philipp Carbajal M.D. on 06/16/2016 at 18:55 Assessment & Plan 55-year-old gentleman with a history of alcohol dependence, alcoholic cardiomyopathy with acute systolic heart failure, hypertension, and depression with a previous suicide attempt in 2009 who was lost to medical follow for the last 2 years. He presented to the Emergency Department with a 6 day history of left ear pain and subsequently admitted for malignant otitis externa. Hospital day #5 1. Angioedema, acute. not present on admission. Resolved. -Uncertain etiology, possibly allergic reaction to medication. -Patient reported difficulty swallowing and voice changes which progressed throughout the afternoon to include facial/lip swelling. Airway patent. -Lisinopril and piperacillin-tazobactam stopped. -Stop dexamethasone -Continue diphenhydramine, famotidine prn 2. Malignant otitis externa, acute. Present on admission. Active -Likely secondary to recent sore on patient's ear that he states he kept picking. -Levofloxacin stopped in the ER following acute rxn at site of IV infusion. Received doses of vancomycin, ceftriaxone in the ER. -Continue daptomycin (day4), per Infectious Disease. -Zosyn stopped /5 for angioedema. 3. Congestive heart failure, systolic, chronic. Present on admission. Active. -Patient has history of noncompliance with medications and follow up. -Per chart review, patient discharged on 11/15/2009 with diagnosis of: -alcoholic cardiomyopathy, systolic heart failure, and atypical chest pain with normal cardiac catheterization. -Echo at that time showed moderate-severely enlarged left ventricle with an EF<15%. -He was stabilized medically and discharged with: Furosemide 40mg daily, Lisinopril 10mg bid, metoprolol succinate 25mg daily. Digoxin 0.125 milligrams daily. -Last Echo via chart review was on 12/20/12 with EF 45-50%, mild dilatation of left atrium, mild dilation of the ascending aorta. -Continue Metoprolol 12.5mg bid, Lisinopril stopped due to angioedema. -Consider consult to Cardiology, due to history. Clinically does not appear in acute exacerbation. 4. Alcohol addiction, chronic. Present on admission. Active -Patient reports 10 shots of Tequila per day and prior symptoms of alcohol withdrawal but denies seizures. -Continue CIWA protocol 5. Chronic hypertension. Present on admission. Active. -Continue metoprolol 12.5 twice a day -Currently hypertensive, possibly secondary to steroids. -Continue to monitor, possibly add second anti-hypertensive medication. 6. Hyperlipidemia, chronic. Present on admission. Active. -Not currently on statin therapy. -Lipid panel, LDL >150, triglycerides 259. -Recommend close outpatient followup for initiation of statin 7. History of depression and anxiety, with prior suicide attempt. Present on admission. Active. -Not currently on anti-depressant. -Monitor clinically and continue CIWA protocol -Patient will need close outpatient follow up Acetaminophen-fever/headache/mild/moderate pain Antiemetics, as needed Bowel regimen, as needed. Disposition: Patient will likely need 1-2days of inpatient monitoring optimization of medical management of multiple medical problems, which are chronic and patient has not been taking his medications. Will need to be setup with PCP prior to discharge (patient requests female PCP if possible) Pain Evaluation: Adequate Pain Control VTE Prophylaxis: Sub-Q Heparin (Unfractionated) Resuscitation Status: CPR: Attempt Resuscitation Attending Statement The patient was seen and examined together with Resident/House-Staff on 06/20/16 and I agree with the history, exam and plan as outlined in the note above. Kristine Santamaria DO June 20, 2016 11:18 Chivo Alvarez June 20, 2016 17:14
--- NOTE | 2016-06-20 14:09 | PROG NOTE ---
[address] [address] PROGRESS NOTE PATIENT: EMY PIERRE : 1960 MR#: [id number] ADMIT: 06/16/2016 JOB ID: [id number] DATE: 06/20/2016 REASON FOR FOLLOWUP: Severe left malignant otitis externa secondary to combination of group G Strep and MRSA in an alcoholic gentleman. INTERVAL HISTORY: Recall that Monday, just prior to leaving the hospital, we were asked to re-evaluate the patient as he developed some sensation of swelling in his upper airway with particular swelling in the lips. This was associated with some subjective shortness of breath. We evaluated the patient in conjunction with pulmonary at that time and recommended that he be placed on steroids and Benadryl, which was done. The patient's angioedema/upper airway symptoms have since completely resolved and his steroids were just stopped today. Over the weekend, the patient has done quite well. He notes that his left ear is dramatically improved with less swelling, tenderness, and pain and discharge. In addition he notes that the swelling of his lips and his upper airway symptoms have completely resolved. He has no cough or shortness of breath at this point. No fevers, no chills. No sweats. No nausea, no vomiting, no diarrhea. LABORATORIES: Include a white count of 11,900, which is almost certainly due to steroids. Creatinine 0.79. LFTs are normal. Procalcitonin 0.13. HIV and hep C are negative. QuantiFERON Gold is pending. Micro studies include the group G Strep. Actually not group a group G strep as well as MRSA grew from his left ear. Blood cultures have been negative and the patient's nasal MRSA swab is positive. IMPRESSION: This is an unfortunate gentleman with malignant otitis externa on the left due to a combination of a beta strep and methicillin-resistant Staphylococcus aureus. He has improved considerably on daptomycin therapy and probably could be released from an Infectious Disease point of view. Unfortunately, on Monday, he suffered what appeared to be an angioedema or immunoglobulin E mediated event involving his face and this was probably due to Zosyn, though the possibility of lisinopril also exists. He has improved dramatically with steroids and antihistamines and withdrawal of the offending agents. At this point, I think it would be reasonable to observe him another day or so more in the hospital but certainly he should be ready to be discharged tomorrow. An appropriate oral antibiotic here might be clindamycin 300 q.i.d. or Zyvox 600 p.o. b.i.d. for about one more week. I would probably lean towards clindamycin even though it is four times a day because it will be much cheaper for the patient. RECOMMENDATIONS: 1. Continue with daptomycin at this point. 2. I would stop all steroids and antihistamines and observe the patient. 3. If there are no more untoward upper respiratory tract events overnight, the patient could be discharged on clindamycin or Zyvox as stated above. 4. Will see the patient again prior to discharge.
[2016-06-21 03:08] VITALS: BP 124/83; PULSE 72; RESP 14; O2SAT 96
[2016-06-21] MEDS: Heparin 5,000 Unit/mL Inj SUBQ SCH ×2 (03:20→10:47)
[2016-06-21 04:42] LABS: BASOPHILS % (AUTO) 0.1 % (0-3); EOSINOPHILS % (AUTO) 0.3 % (0-5); MONOCYTES % (AUTO) 8.9 % (4-12); Mean Corpuscular Hemoglobin 29.6 pg (27.0-35.0); NEUTROPHILS % (AUTO) 63.6 % (40-74); Platelet Count 215 bil/L (150-400)
[2016-06-21] MEDS: Neomycin-Polymyxin-HC 10 mL Otic Solution LEFT_EAR SCH (06:18)
[2016-06-21] MEDS: Famotidine Inj 20 MG in IV Premix 1 EACH IV SCH (07:48)
[2016-06-21] MEDS: Multivit-Miner-Folic Acid-Iron Tablet PO SCH (07:55)
[2016-06-21] MEDS: Sodium Chloride LOK Flush 10 mL Syringe IVFLUSH SCH (07:57)
[2016-06-21 08:30] VITALS: BP 131/89; PULSE 79; RESP 18; O2SAT 93
[2016-06-21] MEDS: DAPTOmycin Inj 750 MG in 0.9% Sodium Chloride 50 ML IV SCH (09:33)
[2016-06-21] MEDS: Mupirocin 2% 22 Gm Ointment NASAL SCH (09:36)
--- NOTE | 2016-06-21 09:48 | PCM.DIMED ---
Discharge Instructions Date of Service June 21, 2016 Dates of Hospitalization June 16, 2016 at 18:27 Discharge Diagnosis Discharge Diagnosis 1. Angioedema 2. Malignant otitis externa 3. Alcohol addiction 4. Hypertension 5. Hyperlipidemia Diet Heart Healthy Activity No restrictions Call your provider Fever or Chills, Shortness of breath, Chest pain, Vomitting, Excessive diarrhea Patient Instructions -Follow up with a primary care physician in the next few days to review this hospital stay and check your blood pressure. -It is important that that you followup with Cardiology, due to your history of heart failure. -We are sending you home with a prescription for antibiotics to treat the infection in your ear. -Take the antibiotics as directed until they are gone to clear the infection completely. -Abstain from alcohol completely and discuss your alcohol use with your primary care physician. . Follow-up plan Follow up with [facility], Dr. Shipley within one week. Call to set up an appointment. [facility] [place], [place] [address] Follow-up Provider: Domenic Shipley MD Follow-up with PCP in: 1 week Provider: [facility] Follow-up in: 2 weeks Mid-level Provider (F9): Vincent Valdes DO Follow-up with Mid-level in: 1 week Kristine Santamaria DO June 21, 2016 09:32
[2016-06-21] MEDS ORDERED: METO25TA6 PO (09:53)
[2016-06-21] MEDS ORDERED: CLIN-78 PO (10:06)
--- NOTE | 2016-06-21 10:34 | PROG NOTE ---
[address] [address] PROGRESS NOTE PATIENT: EMY PIERRE : 1960 MR#: [id number] ADMIT: 06/16/2016 JOB ID: [id number] DATE: 06/21/2016 REASON FOR FOLLOWUP: Combined Beta strep and MRSA infection left ear plus angioedema presumably secondary to Zosyn. INTERVAL HISTORY: The patient reports he is feeling quite well. He has almost no pain or swelling left in his left ear. All oral symptoms including the swollen lips and other intraoral symptoms related to the either Zosyn and/or lisinopril he had received have resolved. No cough, shortness of breath, nausea, or vomiting. He does have some loose stools. PHYSICAL EXAMINATION: Reveals an afebrile gentleman, temp 36.8, pulse 79, respiratory rate 18, blood pressure 131/89, saturating well on room air. No acute distress. Left ear still has a bit of packing left in it, but the inflammation involving the pinna and external auditory canal has essentially resolved. No more crusting inflammation or tenderness. Oral cavity likewise normal. The lips are now back to normal size. The patient has no complaint there. Lungs are clear. Abdomen soft, nontender. DIAGNOSTIC STUDIES: Laboratories include white count 7300, completely normal diff now that the steroids are gone. Creatinine 0.79. LFTs totally normal. Procalcitonin was 0.13, and that was some days ago. HIV, hep C negative. QuantiFERON Gold pending. Cultures of course grew group G strep as well as MRSA from the ear. No new imaging. IMPRESSION: This patient is doing extremely well. His infection has largely resolved. He should probably continue about 1 more week of an oral agent, and I think clindamycin would be a reasonable choice here, though Zyvox would be reasonable as well if he can afford it. RECOMMENDATIONS: 1. Last dose of daptomycin is being given as we speak. 2. The patient is ready for discharge. I would be sure and take all packing out of the ear before he goes. 3. The patient should take home his tube of mupirocin and finish the b.i.d. nasal mupirocin in attempt to eradicate his MRSA colonization. 4. Oral antibiotic should be clinda 300 mg p.o. q.i.d. for about 1 week or Zyvox 600 p.o. b.i.d. again for week. 5. The patient can follow up with me if he wants to, but I suspect this entire episode has come to a conclusion and it is not required.
--- NOTE | 2016-06-21 19:28 | PCM.DC.MED ---
Discharge Summary Date of Service June 21, 2016 Dates of Hospitalization Date of Hospital Admission June 16, 2016 at 18:27 Date of Discharge: June 21, 2016 Providers: Admitting Physician: Fide Carballo DO Primary Care Physician: Suzettecp Attending Physician: Fide Carballo DO Diagnosis at Time of Discharge Diagnosis at Time of Discharge 1. Angioedema 2. Malignant otitis externa 3. Alcohol addiction 4. Hypertension 5. Hyperlipidemia 6. History of Congestive heart failure 7. Alcohol addiction 8. Chronic hypertension 9. Hyperlipidemia 10. History of depression and anxiety Procedures XRay, CTs & MRIs PROCEDURE: CT NECK SOFT TISSUES WITH CONTRAST IMPRESSION: 1. Inflammation involving the left external auditory canal and the left periauricular soft tissues compatible with clinical diagnosis of malignant otitis externa. 2. No abscess. Dictated and approved by: Karlene Cisneros MD, PhD on 06/16/2016 at 16:31 ADDENDUM: Inflammation involving the left external auditory canal and the left periauricular soft tissues compatible with clinical diagnosis of malignant otitis externa.Inadvertently the dictation did not mention at the site of the palpable abnormality in the posterior left upper neck approximately C3. At this site is a bilobed or 2 adjacent small lymph nodes that enhance and show a small amount of inflammation around them consistent with inflammatory response. Also, the parotid gland was reviewed per Dr. Carballo and no abnormality of it is seen. There is some stranding in the subcutaneous fat superficial to it. Dictated and approved by: Philipp Carbajal M.D. on 06/16/2016 at 18:55 Brief History Per admission history and physical on 06/16/16. Dr. Fide Carballo. 55-year-old male with past medical history of systolic heart failure, hypertension who was lost to medical follow for the last 2 years his presenting with left ear pain that is ongoing for 6 days . He states that he does not smoke and he has had no fevers or chills. No sore throat or sinus infections. He does feel occasional pressure sensation in his ears. He denies using too much Q-tips to cause trauma. He has had no strep throat infections. He is endorsing drainage from left ear, pressure on his neck left-sided facial pain but denies hearing loss and fevers and chills he was unable to go to work for the last 1 week because of this.. States that he gets his ears flushed due to due to wax sometimes but has not done this in the recent past In the ER he was given vancomycin and ceftriaxone. Levaquin was started but still held due to itching and reaction. His blood pressures were elevated at 177/108 and heart rate 110 and 102. ENT was contacted Dr. Baldev Jacob agreed to see the patient CT scan of soft tissue neck showed malignant otitis, inflamed periarticular soft tissue. Records indicate an echo that was done in 12/20/12 showed ejection fraction of 45 -50%, mild dilatation of left atrium, mild dilation of the ascending aorta, 31 mm of right ventricular pressures. Hospital Course Mr. Crow is a 55-year-old gentleman with a history of alcohol dependence, alcoholic cardiomyopathy with acute systolic heart failure, hypertension, and depression with a previous suicide attempt in 2008 who was lost to medical follow for the last 2 years. He presented to the Emergency Department with a 6 day history of left ear pain and was subsequently admitted for malignant otitis externa. 1. Malignant otitis externa, acute. Present on admission. Treated. -Likely secondary to recent sore on patient's ear that he states he kept picking. -Levofloxacin stopped in the ER following acute rxn at site of IV infusion. Received doses of vancomycin, ceftriaxone in the ER. -Infectious disease was consulted and patient started on Zosyn and Daptomycin. -Cultures from patient's ear grew Beta Streptococcus and MRSA -Zosyn stopped 06/17 for angioedema. -Patient received IV daptomycin (06/17-06/21) and discharged on oral clindamycin 300mg qid for 7 more days. 2. Angioedema, acute. not present on admission. Resolved. -Uncertain etiology, possibly allergic reaction to zosyn or lisinopril. -Patient reported difficulty swallowing and voice changes and later significant facial/lip swelling. Airway remained patent. -Lisinopril and piperacillin-tazobactam stopped on 06/17/16. -Patient received dexamethasone, famotidine and diphenhydramine q6h (06/17-06/19) with resolution of symptoms. 3. History of Congestive heart failure, systolic. Present on admission. Presumed stable. -Patient has history of noncompliance with medications and follow up. -Per chart review, patient discharged on 11/15/2009 with diagnosis of: -alcoholic cardiomyopathy, systolic heart failure, and atypical chest pain with normal cardiac catheterization. -Echo at that time showed moderate-severely enlarged left ventricle with an EF<15%. -He was stabilized medically and discharged with: Furosemide 40mg daily, Lisinopril 10mg bid, metoprolol succinate 25mg daily. Digoxin 0.125 milligrams daily. -Last Echo via chart review was on 12/20/12 with EF 45-50%, mild dilatation of left atrium, mild dilation of the ascending aorta. -Patient continued on metoprolol 12.5mg bid. Lisinopril was stopped on 06/17/16 due to angioedema. Possible the reaction was secondary to Zosyn, which was also stopped. 4. Alcohol addiction, chronic. Present on admission. Active -Patient reports 10 shots of Tequila per day and prior symptoms of alcohol withdrawal but denies seizures. -Patient was placed on CIWA protocol. 5. Chronic hypertension. Present on admission. Improved -Patient was continued on metoprolol 12.5 twice a day -He will need close outpatient followup. 6. Hyperlipidemia, chronic. Present on admission. Active. -Not currently on statin therapy. -Lipid panel, LDL >150, triglycerides 259. -Recommend close outpatient followup for initiation of statin 7. History of depression and anxiety, with prior suicide attempt. Present on admission. Presumed stable. -Not currently on anti-depressant. -Patient will need close outpatient follow up Exam Vital Signs (Last) Date Time Temp Pulse Resp B/P Pulse Ox O2 Delivery O2 Flow Rate FiO2 06/21/16 08:30 36.8 79 18 131/89 93 Room Air 06/17/16 21:46 2.00 Exam General: Well-developed, obese male, in no acute distress. Alert and oriented x3. HEENT: Normocephalic, atraumatic, left ear tender to palpation with erythema/ swelling. Neck: Soft, mildly tender to palpation on the left at the level of L3 consistent with palpable posterior lymphadenopathy. Cardiovascular: Regular rate and rhythm, no murmurs, no rubs, or gallops appreciated Pulmonary: Clear to auscultation bilaterally with no crackles, wheezes, or rhonchi. Abdomen: Bowel tones present. Soft, nontender, nondistended. No hepatosplenomegaly or masses appreciated. Extremities: Bilateral brawny discoloration of ankles bilaterally consistent with venous stasis changes. No edema, cyanosis or clubbing Skin: Normal temperature, normal turgor, and texture; facial flushing, no urticaria, obvious rash or ulcers Psychiatric: Appropriately interactive, normal mood and affect. Test 06/16/16 15:10 06/16/16 17:01 06/17/16 05:05 06/17/16 09:20 Lactic Acid Level 1.6mmol/L (0.4-2.0) Urine Color Yellow (YELLOW) Urine Appearance Clear (CLEAR,HAZY) Urine pH 5.5 (5.0-8.0) Urine Specific [place] <1.005 (1.003-1.035) Urine Protein Negativemg/dL (NEG,TRACE) Urine Glucose (UA) Negativemg/dL (NEGATIVE) Urine Ketones Tracemg/dL (NEGATIVE) Urine Occult Blood Moderate (NEGATIVE) Urine Nitrite Negative (NEGATIVE) Urine Bilirubin Negative (NEGATIVE) Urine Urobilinogen Normalmg/dL (NORMAL) Urine Leukocyte Esterase Negative (NEGATIVE) Urine RBC 3-10/hpf (0-2) Urine WBC 0-5/hpf (0-5) Urine Epithelial Cells Occasional/hpf (NONE-MOD) Urine Crystals None seen (NONE SEEN) Urine Bacteria None/hpf (NONE-FEW) Urine Hyaline Casts None/lpf (NONE) Urine Granular Casts None seen (NONE SEEN) Urine Waxy Casts None seen (NONE SEEN) Urine Red Blood Cell Casts None seen (NONE SEEN) Urine White Blood Cell Casts None seen (NONE SEEN) Urine Mucus None seen (None Seen) Urine Trichomonas None seen (NONE SEEN) Urine Yeast None (NONE SEEN) Urinalysis Comment None Urine Culture Reflexed Not indicated Procalcitonin 0.13ng/mL (0.00-0.08) Hepatitis C Antibody <0.1s/co ratio (0.0-0.9) HIV (1&2) Ag and Ab, 4th Generation Non reactive (Non Reactive) Test 06/17/16 11:03 06/18/16 04:10 06/19/16 04:54 06/21/16 04:15 Hemoglobin A1c 5.8% (4.8-5.6) Triglycerides Level 151mg/dL (0-149) Cholesterol Level 249mg/dL (100-199) LDL Cholesterol, Calculated 159.800mg/dL (0-99) VLDL Cholesterol 30.200mg/dL HDL Cholesterol 59mg/dL (>39) Cholesterol/HDL Ratio 4.22 (0.0-4.4) Sodium Level 139mEq/L (134-144) Potassium Level 4.4mEq/L (3.5-5.2) Chloride Level 99mEq/L (97-108) Carbon Dioxide Level 25mmol/L (18-29) Blood Urea Nitrogen 22mg/dL (6-24) Creatinine 0.79mg/dL (0.76-1.27) Estimat Glomerular Filtration Rate 107mL/min (>59) Glucose Level 155mg/dL (60-99) Calcium Level 9.6mg/dL (8.5-10.1) Total Bilirubin 0.5mg/dL (0.0-1.2) Aspartate Amino Transf (AST/SGOT) 28U/L (0-50) Alanine Aminotransferase (ALT/SGPT) 24U/L (0-44) Alkaline Phosphatase 61U/L (25-150) Total Protein 6.9g/dL (6.4-8.4) Albumin 4.3g/dL (3.4-5.0) White Blood Count 7.3th/mm3 (3.8-10.1) Red Blood Count 4.83mil/mm3 (4.40-5.80) Hemoglobin 14.3g/dL (13.8-17.2) Hematocrit 42.0% (41.0-50.0) Mean Corpuscular Volume 87.0fL (81-100) Mean Corpuscular Hemoglobin 29.6pg (27.0-35.0) Mean Corpuscular Hemoglobin Concent 34.0% (32.0-37.0) Red Cell Distribution Width 13.1% (12.3-15.4) Platelet Count 215bil/L (150-400) Neutrophils (%) (Auto) 63.6% (40-74) Lymphocytes (%) (Auto) 26.7% (14-46) Monocytes (%) (Auto) 8.9% (4-12) Eosinophils (%) (Auto) 0.3% (0-5) Basophils (%) (Auto) 0.1% (0-3) Microbiology Results MRSA screen- positive Culture-left ear: positive for Group B streptococcus and Staph (probable S. aureus) Blood cultures- no growth to date. Discharge Medications Discharge Medications Cholecalciferol (Vitamin D3) (Vitamin D3) 1,000 Unit Tab.chew 1,000 UNIT PO DAILY (Reported) Clindamycin (Clindamycin) 300 Mg Capsule 300 MG PO QID Prescribed by: MARIBEL NUÑEZ DO Cyanocobalamin (Vitamin B-12) (Vitamin B-12) 100 Mcg Tablet Unknown Dose PO DAILY (Reported) Metoprolol Tartrate (Metoprolol Tartrate) 25 Mg Tablet 12.5 MG PO BID Prescribed by: MARIBEL NUÑEZ DO Multivit-Min/FA/Lycopen/Lutein (Centrum Silver Men Tablet) 300 Mcg-600 Mcg-300 Mcg Tablet 1 EACH PO DAILY (Reported) [place]-3/Dha/Epa/Fish Oil (Fish Oil 1,000 mg Softgel) 1 Each Capsule 2 EACH PO DAILY (Reported) As needed Omeprazole Magnesium (Prilosec Otc) 20 Mg Tablet.dr 20 MG PO DAILY PRN PRN For Dyspepsia or Heartburn (Reported) Followup Plan Discharge Diet: Heart Healthy Discharge Activity: No restrictions Patient Instructions -Follow up with a primary care physician in the next few days to review this hospital stay and check your blood pressure. -It is important that that you followup with Cardiology, due to your history of heart failure. -We are sending you home with a prescription for antibiotics to treat the infection in your ear. -Take the antibiotics as directed until they are gone to clear the infection completely. -Abstain from alcohol completely and discuss your alcohol use with your primary care physician. . Follow-up Provider: Vincent Valdes DO Follow-up with PCP in: 1 week Provider: [facility] Follow-up in: 2 weeks Mid-level Provider: Domenic Shipley MD Follow-up with Mid-level in: 1 week Time spent 35 min Attending Statement The patient was seen and examined together with Resident/House-staff on 06/21/16 and I agree with the history, exam and plan as outlined in the note above. Maribel Nuñez DO June 21, 2016 09:49 Chivo Alvarez June 24, 2016 16:56
== END 2016-06-21 12:00 | disposition home or self-care (01) | DRG 155 ==
LOC: SED 12:15 → OSC 18:27 → PCC 19:58
PROVIDERS: ADMIT Family Medicine; ATTEND Family Medicine
DX: H60.22 Malignant otitis externa, left ear (principal); I50.22 Chronic systolic (congestive) heart failure; I42.6 Alcoholic cardiomyopathy; I10 Essential (primary) hypertension; F10.20 Alcohol dependence, uncomplicated; E78.5 Hyperlipidemia, unspecified; B95.2 Enterococcus as the cause of diseases classified elsewhere; B95.62 Methicillin resistant Staphylococcus aureus infection as the cause of diseases classified elsewhere; T36.0X5A Adverse effect of penicillins, initial encounter; T78.3XXA Angioneurotic edema, initial encounter; Z91.5 Personal history of self-harm

== ENCOUNTER 2016-08-11 00:18 | Day surgery (SDC) | payer OTHER ==
[~2016-08-11] VITALS: Ht 172.7 cm; Wt 104.0 kg
[2016-08-11] VITALS (13 sets, daily range): BP systolic 135–149; BP diastolic 76–87; PULSE 64–81; RESP 11–24; O2SAT 95–97
[~2016-08-11 00:18] MED LIST changes: +ASPI-973 PO; +CARV6.252 PO; +CHOL10008 PO; +CYAN100T PO; -DIGO125T PO; -FOLI-51 PO; -FURO40TA PO; -LISI10TA9 PO; +MULT-1065 PO; +OMEG-38 PO; -TOPR25T PO; -vitamin B 12 PO
--- NOTE | 2016-08-11 06:00 | NUR ---
ADMISSION NOTE MALE PT ADMITTED FOR HEART CATH. DISCUSSED PLAN OF CARE WITH PT. SEE ADMIT AND FLOW SHEET
[2016-08-11 06:50] LABS: BASOPHILS % (AUTO) 0.7 % (0-3); EOSINOPHILS % (AUTO) 3.3 % (0-5); MONOCYTES % (AUTO) 6.2 % (4-12); Mean Corpuscular Volume 83.9 fL (81-100); NEUTROPHILS % (AUTO) 64.9 % (40-74); Platelet Count 199 bil/L (150-400)
[2016-08-11] MEDS ORDERED: 0.9% Sodium Chloride 1,000 ML IV ONE (06:50)
[2016-08-11] MEDS ORDERED: OMEP20TA24 PO (07:05)
[2016-08-11] MEDS ORDERED: ATRV10T PO (07:05)
[2016-08-11] MEDS ORDERED: Heparin 1,000 Units/500 mL NS Premix IV ONE (07:40)
[2016-08-11] MEDS ORDERED: Heparin 10,000 Unit/1,000 mL NS Premix IV ONE (07:40)
[2016-08-11] MEDS ORDERED: 0.9% Sodium Chloride 50 ML ONE (07:48)
[2016-08-11] MEDS ORDERED: fentaNYL-PF 50 mCg/mL 2 mL Inj ONE (08:28)
--- NOTE | 2016-08-11 09:45 | NUR ---
POST PROCEDURE NOTE RETURNED FROM [facility] [facility]. SEE FLOW SHEET
--- NOTE | 2016-08-11 10:02 | CS94 ---
[address] [address] DIAGNOSTIC CARDIAC CATHETERIZATION PATIENT: EMY PIERRE : 1960 MR#: [id number] ADMIT: 08/11/2016 JOB ID: [id number] SERVICE DATE: 08/11/2016 PATIENT PROFILE: The patient is a 56-year-old male with history of non ischemic dilated cardiomyopathy, hypertension and history of heavy alcohol use. Recent echocardiogram showed worsening of left ventricular function. PROCEDURE: 1. Right heart catheterization. 2. Retrograde left heart catheterization. 3. Selective coronary angiography. 4. Left ventricular angiogram. VASCULAR CLOSURE DEVICE: StarClose. COMPLICATION: None. METHOD: Combined left and right heart catheterization was performed from the right groin under 1% lidocaine local anesthesia using a 6 and a 7-Scottish sheaths. A 7-Scottish [place]-Tommy catheter was used for the right heart pressures. Cardiac output was determined by both thermodilution technique and MAISHA method. Selective coronary angiogram was performed in multiple projections, including cranial and caudal angulations with hand injected contrast via JL-4 and 3DRC catheters. A 6-Scottish angulated pigtail catheter was advanced to the left ventricle and left ventricular angiogram was performed in the 30 degree ROMEO view by injecting contrast at the rate of 15 cc/second for 2 seconds. This catheter was withdrawn. Right femoral angiogram was performed. Following sheath removal, hemostasis was achieved by using a StarClose device. The patient tolerated the procedure well. He was transferred to [facility] in good condition. TOTAL CONTRAST USED: 75 cc. FLUOROSCOPY TIME: 2.7 minutes. TOTAL RADIATION DOSE: 460 mGy. RESULTS: 1. Mean right atrial pressure is 6 mmHg. Right ventricular pressure is 28/5 mmHg. Pulmonary artery pressure is 27/13 mmHg. 2. Mean pulmonary capillary wedge pressure is 15 mmHg. 3. Arterial oxygen saturation is 98%. Mixed venous saturation is 76%. 4. Cardiac output by the thermodilution technique is 9.5 L/minute with an index of 4.39 L/min/m2. 5. Cardiac output by the MAISHA method is 7.15 L/minute with an index of 3.29 L/min/m2. 6. Selective coronary angiogram: a. Left main coronary artery is normal. b. The left anterior descending artery is transapical and normal. c. The codominant circumflex artery is normal. d. The codominant right coronary artery is normal. 7. Left ventricular angiogram demonstrates dilated left ventricle with mildly depressed left ventricular systolic function (visually estimated ejection fraction 45%-50%). There appears to be global hypokinesis. There is no mitral regurgitation. 8. There is no gradient across the aortic valve on catheter withdrawal. 9. Aortic pressure is 145/82 mmHg. Left ventricular pressure is 141/12 mmHg. 10. Left ventricular end-diastolic is 29 mmHg. CONCLUSION: 1. Normal coronary arteries. 2. Dilated left ventricle with ejection fraction 45%-50%. 3. LVEDP is 29 mmHg. 4. Normal pulmonary artery pressure. 5. Cardiac index is 3.3 L/min/m2. MTDD
[2016-08-11] MEDS ORDERED: Atropine 1 mg/10 mL (Code) Syringe IVPUSH PRN (11:45)
[2016-08-11] MEDS ORDERED: Ondansetron 2 mg/mL 2 mL Inj IVPUSH PRN (11:45)
--- NOTE | 2016-08-11 14:45 | NUR ---
DISCHARGE NOTE UP IN ROOM,. NO COMPLAINTS. INSTRUCTIONS GIVEN. HOME WITH FAMILY
== END 2016-08-11 23:59 | disposition home or self-care (01) ==
LOC: SOUO 00:18
PROVIDERS: ATTEND Internal Medicine Interventional Cardiology
DX: I42.0 Dilated cardiomyopathy (principal); I10 Essential (primary) hypertension; F10.10 Alcohol abuse, uncomplicated; E78.5 Hyperlipidemia, unspecified; Z79.82 Long term (current) use of aspirin
CPT/HCPCS: 36415; 80048; 85025; 93005; 93460; 99152; 99153; C1760; C1769; J1644; J2060; J2250; J3010; J7030; Q9967